=== PATIENT | male | born 1940 | race Caucasian/White ===

== ENCOUNTER 2016-10-09 15:15 | Inpatient (IN) | payer MEDICARE ==
[2016-10-09] MEDS ORDERED: HYDROCODONE/ACETAMINOPHEN 5-325 MG TABLET PO ONE (15:43)
[2016-10-09] MEDS ORDERED: ONDANSETRON 4 MG TAB.RAPDIS ONE (16:23)
--- NOTE | 2016-10-09 16:45 | ER Document Report ---
ED General - General Chief Complaint: Fall Injury Stated Complaint: FALL/ HIP PAIN Mode of Arrival: Medic Information source: Patient, Relative Notes: 76-year-old male who normally and delayed states that he had a mechanical fall striking his head on a cabinet and having hip pain. Patient notes that he was unable to and relate afterwards, didn't strike his head and is on a blood thinner Patient denies any LOC any neurological deficits hip was placed in a blanket splint TRAVEL OUTSIDE OF THE [place] IN LAST 30 DAYS: No - HPI Onset: Just prior to arrival Onset/Duration: Sudden Quality of pain: Achy Severity: Mild Pain Level: 1 Associated symptoms: Body/muscle aches, Other Exacerbated by: Movement Relieved by: Denies Similar symptoms previously: No Recently seen / treated by doctor: No - Related Data Allergies/Adverse Reactions: No Known Allergies Allergy (Unverified 12/15/14 09:27) Past Medical History - General Information source: Patient, Emergency Med Personnel - Social History Smoking Status: Never Smoker Cigarette use (# per day): No Chew tobacco use (# tins/day): No Smoking Education Provided: No Family History: None Patient has suicidal ideation: No Patient has homicidal ideation: No - Past Medical History Cardiac Medical History: Reports: Hx Atrial Fibrillation, Hx Congestive Heart Failure, Hx Hypertension Endocrine Medical History: Reports: Hx Diabetes Mellitus Type 2 Skin Medical History: Denies Hx MRSA Psychiatric Medical History: Denies: Hx Depression Past Surgical History: Reports: Hx Cardiac Surgery - pacer/defib, Hx Orthopedic Surgery - R knee replacement - Immunizations Hx Diphtheria, Pertussis, Tetanus Vaccination: Yes Hx Pneumococcal Vaccination: 06/23/09 Review of Systems - Review of Systems Notes: REVIEW OF SYSTEMS: CONSTITUTIONAL : Denies fever, chills, or sweats. Denies recent illness. EENT: Denies eye, ear, throat, or mouth pain or symptoms. Denies nasal or sinus congestion or discharge. Denies throat, tongue, or mouth swelling or difficulty swallowing. CARDIOVASCULAR: Denies chest pain. Denies palpitations or racing or irregular heart beat. Denies ankle edema. RESPIRATORY: Denies cough, cold, or chest congestion. Denies shortness of breath, difficulty breathing, or wheezing. GASTROINTESTINAL: Denies abdominal pain or distention. Denies nausea, vomiting , or diarrhea. Denies blood in vomitus, stools, or per rectum. Denies black, tarry stools. Denies constipation. GENITOURINARY: Denies difficulty urinating, painful urination, burning, frequency, blood in urine, or discharge. MUSCULOSKELETAL: Admits to right hip pain SKIN: Denies rash, lesions or sores. HEMATOLOGIC : Denies easy bruising or bleeding. LYMPHATIC: Denies swollen, enlarged glands. NEUROLOGICAL: Denies confusion or altered mental status. Denies passing out or loss of consciousness. Denies dizziness or lightheadedness. Denies headache. Denies weakness or paralysis or loss of use of either side. Denies problems with gait or speech. Denies sensory loss, numbness, or tingling. Denies seizures. PSYCHIATRIC: Denies anxiety or stress. Denies depression, suicidal ideation, or homicidal ideation. ALL OTHER SYSTEMS REVIEWED AND NEGATIVE. Dictation was performed using [employer] voice recognition software PHYSICAL EXAMINATION: GENERAL: Well-appearing, well-nourished and in no acute distress. HEAD: Atraumatic, normocephalic. EYES: Pupils equal round and reactive to light, extraocular movements intact, sclera anicteric, conjunctiva are normal. ENT: Nares patent, oropharynx clear without exudates. Moist mucous membranes. NECK: Normal range of motion, supple without lymphadenopathy LUNGS: Breath sounds clear to auscultation bilaterally and equal. No wheezes rales or rhonchi. HEART: Regular rate and rhythm without murmurs ABDOMEN: Soft, nontender, nondistended abdomen. No guarding, no rebound. No masses appreciated. Musculoskeletal: Limited range of motion of the right hip with tenderness, no obvious deformity NEUROLOGICAL: Cranial nerves grossly intact. Normal speech, normal gait. Normal sensory, motor exams PSYCH: Normal mood, normal affect. SKIN: Warm, Dry, normal turgor, no rashes or lesions noted. Physical Exam - Vital signs Vitals: Temp Pulse Resp BP Pulse Ox 98.3 F 100 16 128/66 H 100 10/09/16 15:30 10/09/16 15:30 10/09/16 15:30 10/09/16 15:30 10/09/16 15:30 Course - Re-evaluation Re-evalutation: 10/09/16 17:11 X-ray and CT of the head was negative however given the patient continues to have pain a CT has been ordered 10/09/16 18:11 ct noted femoral fx. joao sunshine paged at family request for dr barrera 10/09/16 18:41 Dr Barrera is not in town for 2 weeks , family wishes ot stay here 10/09/16 20:10 - Vital Signs Vital signs: Temp Pulse Resp BP Pulse Ox 98.3 F 100 16 128/66 H 100 10/09/16 15:30 10/09/16 15:30 10/09/16 15:30 10/09/16 15:30 10/09/16 15:30 - Laboratory Result Diagrams: 10/09/16 18:30 10/09/16 18:30 Laboratory results interpreted by me: 10/09/16 10/09/16 10/09/16 18:30 18:30 18:30 RBC 3.63 L Hgb 10.8 L Hct 31.8 L RDW 16.9 H Seg Neutrophils % 85.0 H Lymphocytes % 6.7 L PT 26.8 H BUN 23 H Creatinine 1.33 H Est GFR (Non-Af Amer) 52 L Glucose 132 H - Diagnostic Test Radiology reviewed: Image reviewed, Reports reviewed Discharge - Discharge Clinical Impression: Hip fracture Qualifiers: Encounter type: initial encounter Fracture type: closed Laterality: right Qualified Code(s): S72.001A - Fracture of unspecified part of neck of right femur, initial encounter for closed fracture Fall Qualifiers: Encounter type: initial encounter Qualified Code(s): W19.XXXA - Unspecified fall, initial encounter Condition: Stable Disposition: ADMITTED INPATIENT Admitting Provider: Hospitalist Unit Admitted: Telemetry
[2016-10-09 18:41] LABS: ABSOLUTE LYMPHOCYTES (AUTO) 0.5 10^3/uL (0.5-4.7); ABSOLUTE MONOCYTES (AUTO) 0.6 10^3/uL (0.1-1.4); ABSOLUTE NEUT (AUTO) 6.7 10^3/uL (1.7-8.2); BASOPHILS % (AUTO) 0.6 % (0-2); EOSINOPHILS % (AUTO) 0.5 % (0-6); HEMATOCRIT 31.8 % (37.9-51.0); HEMOGLOBIN 10.8 g/dL (13.5-17.0); HGB HCT DIFFERENCE 0.6; LYMPHOCYTES % (AUTO) 6.7 % (13-45); MEAN CORPUSCULAR HEMOGLOBIN 29.8 pg (27.0-33.4); MEAN CORPUSCULAR VOLUME 88 fl (80-97); MONOCYTES % (AUTO) 7.2 % (3-13); RED BLOOD COUNT 3.63 10^6/uL (4.35-5.55); RED CELL DISTRIBUTION WIDTH 16.9 % (11.5-14.0); WHITE BLOOD COUNT 7.9 10^3/uL (4.0-10.5)
[2016-10-09 18:47] LABS: PROTHROMBIN TIME 26.8 SEC (11.4-15.4)
[2016-10-09 19:04] LABS: ALANINE AMINOTRANSFERASE 24 U/L (21-72); ALBUMIN 3.9 g/dL (3.5-5.0); ALKALINE PHOSPHATASE 104 U/L (38-126); ANION GAP 12 (5-19); ASPARTATE AMINO TRANSFERASE 36 U/L (17-59); BILIRUBIN,TOTAL 0.5 mg/dL (0.2-1.3); BLOOD UREA NITROGEN 23 mg/dL (7-20); CALCIUM 9.6 mg/dL (8.4-10.2); CARBON DIOXIDE 26 mmol/L (22-30); CHLORIDE 103 mmol/L (98-107); CREATININE RESULT 1.33 mg/dL (0.52-1.25); GLUCOSE 132 mg/dL (75-110); POTASSIUM 4.5 mmol/L (3.6-5.0); SODIUM 140.7 mmol/L (137-145); TOTAL PROTEIN 6.7 g/dL (6.3-8.2)
[2016-10-09] MEDS ORDERED: TRAMADOL HCL 50 MG TABLET PO PRN (20:01)
[2016-10-09] MEDS ORDERED: GLUCAGON,HUMAN RECOMB 1 MG INJ IM PRN (20:03)
[2016-10-09] MEDS ORDERED: DEXTROSE 50%-WATER 25 GM/50 ML DISP.SYRIN IV PRN ×2 (20:03)
[2016-10-09] MEDS ORDERED: DEXTROSE 40% GEL 15 GM TUBE PO PRN ×2 (20:03)
[2016-10-09] MEDS ORDERED: MAGNESIUM HYDROXIDE SUSP 30 ML UDCUP PO PRN (20:04)
[2016-10-09] MEDS ORDERED: ONDANSETRON HCL INJ/PF 4 MG/2 ML SDV IV PRN (20:04)
[2016-10-09] MEDS ORDERED: IPRATROPIUM/ALBUTEROL 0.5-2.5 MG/3 ML AMPUL NEB PRN (20:04)
[2016-10-09] MEDS ORDERED: (PENDING PHARMACY ID) (Lovastatin [Altoprev] 20 MG) PO SCH (22:00)
[2016-10-09] MEDS: HEPARIN SOD (PORCINE) 5,000 UNIT/ML 1 ML SYRINGE SUBCUT SCH (23:46)
[2016-10-09] MEDS: CARVEDILOL 12.5 MG TABLET PO SCH (23:47)
[2016-10-09] MEDS: CLONIDINE HCL 0.1 MG TABLET PO SCH (23:47)
[2016-10-09] MEDS: ATORVASTATIN CALCIUM 10 MG TABLET PO SCH (23:48)
[2016-10-10 01:24] LABS: FOLATE > 20.00 ng/mL (>2.76)
[2016-10-10 04:45] LABS: ABSOLUTE EOSINOPHILS # (AUTO) 0.1 10^3/uL (0.0-0.6); ABSOLUTE MONOCYTES (AUTO) 0.7 10^3/uL (0.1-1.4); ABSOLUTE NEUT (AUTO) 4.5 10^3/uL (1.7-8.2); BASOPHILS % (AUTO) 0.5 % (0-2); HEMOGLOBIN 9.6 g/dL (13.5-17.0); HGB HCT DIFFERENCE 0.8; LYMPHOCYTES % (AUTO) 15.5 % (13-45); MEAN CORPUSCULAR HEMOGLOBIN 29.9 pg (27.0-33.4); MEAN CORPUSCULAR HGB CONC 34.2 g/dL (32.0-36.0); MEAN CORPUSCULAR VOLUME 88 fl (80-97); MONOCYTES % (AUTO) 11.2 % (3-13); RED BLOOD COUNT 3.19 10^6/uL (4.35-5.55); RED CELL DISTRIBUTION WIDTH 16.8 % (11.5-14.0); SEGMENTED NEUTROPHILS % (AUTO) 71.8 % (42-78); WHITE BLOOD COUNT 6.2 10^3/uL (4.0-10.5)
[2016-10-10 05:21] LABS: ANION GAP 9 (5-19); BLOOD UREA NITROGEN 23 mg/dL (7-20); CALCIUM 9.2 mg/dL (8.4-10.2); CARBON DIOXIDE 26 mmol/L (22-30); CHLORIDE 105 mmol/L (98-107); CREATININE RESULT 1.24 mg/dL (0.52-1.25); GLUCOSE 93 mg/dL (75-110); POTASSIUM 4.4 mmol/L (3.6-5.0); SODIUM 139.9 mmol/L (137-145)
[2016-10-10] MEDS: HEPARIN SOD (PORCINE) 5,000 UNIT/ML 1 ML SYRINGE SUBCUT SCH ×2 (06:01→13:45)
[2016-10-10] MEDS: CLONIDINE HCL 0.1 MG TABLET PO SCH ×2 (06:01→13:53)
[2016-10-10] MEDS ORDERED: NORMAL SALINE 250 ML IV PRN ×2 (06:11)
--- NOTE | 2016-10-10 06:15 | PDOC H&P ---
History of Present Illness Admission Date/PCP: 10/09/16 20:03 Patient complains of: Right hip pain History of Present Illness: KEVAN GOMES SR is a 76 year old male with a past medical history of congestive heart failure with permanent pacemaker, obstructive sleep apnea, diabetes, chronic anticoagulation for pulmonary emboli 2 years ago. He denies usual state of health until having a momentary loss of balance falling backwards resulting in pain with weightbearing on his right hip and a glancing blow to a cabinet on his scalp without injury. He denied prior dizziness palpitations chest pain shortness of breath, no subsequent limb shaking loss of consciousness or vomiting. He denies recent change in medications usually ambulates with a walker having regardless sustaining 2 falls in the last 30 days. In the emergency room he has a workup notable for a nondisplaced right- sided hip fracture by CT, anemia and INR of 2.5. He is referred to the hospitalist for admission. Past Medical History Cardiac Medical History: Reports: Atrial Fibrillation, Congestive Heart Failure , Hypertension Endocrine Medical History: Reports: Diabetes Mellitus Type 2 Psychiatric Medical History: Denies: Depression, Tobacco Dependency Past Surgical History Past Surgical History: Reports: Internal Defibrillator, Knee Replacement - Right side, Orthopedic Surgery - R knee replacement, Pacemaker Social History Information Source: Patient Lives with: Alone Smoking Status: Former Smoker Cigarettes Packs Per Day: 1 Number of Years Smokin Last Time Smoked: 2011 Frequency of Alcohol Use: None Hx Recreational Drug Use: No Drugs: None Hx Prescription Drug Abuse: No - Advance Directive Resuscitation Status: Full Code Family History Family History: Hypertension Parental Family History Reviewed: Yes Children Family History Reviewed: Yes Sibling(s) Family History Reviewed.: Yes Medication/Allergy Home Medications: Carvedilol 25 mg PO BID 10/09/16 Clonidine HCl 0.1 mg PO TID 10/09/16 Digoxin [Digox] 125 mcg PO DAILY 10/09/16 Ergocalciferol (Vitamin D2) [Vitamin D2] 400 unit PO DAILY 10/09/16 Exenatide Microspheres [Bydureon Pen] 2 mg SQ ASDIR PRN 10/09/16 Furosemide [Lasix 40 mg Tablet] 40 mg PO DAILY 10/09/16 Krill Oil 500 mg PO BID 10/09/16 Levothyroxine Sodium [Synthroid] 25 mcg PO DAILY 10/09/16 Lovastatin [Altoprev] 20 mg PO QHS 10/09/16 Metformin HCl [Glucophage] 1,000 mg PO Q12 10/09/16 Omeprazole 20 mg PO DAILY 10/09/16 Potassium Chloride 20 meq PO Q12 10/09/16 Sacubitril/Valsartan [Entresto 49 mg/51 mg Tablet] 1 tab PO BID 10/09/16 Sitagliptin Phosphate [Januvia 50 mg Tablet] 50 mg PO DAILY 10/09/16 Tramadol HCl 50 mg PO TID 10/09/16 Warfarin Sodium 5 mg PO QHS 10/09/16 Allergies/Adverse Reactions: No Known Allergies Allergy (Unverified 12/15/14 09:27) Review of Systems Constitutional: ABSENT: chills, fever(s), headache(s), weight gain, weight loss Eyes: ABSENT: visual disturbances Ears: ABSENT: hearing changes Cardiovascular: ABSENT: chest pain, dyspnea on exertion, edema, orthropnea, palpitations Respiratory: ABSENT: cough, hemoptysis Gastrointestinal: ABSENT: abdominal pain, constipation, diarrhea, hematemesis, hematochezia, nausea, vomiting Genitourinary: ABSENT: dysuria, hematuria Musculoskeletal: ABSENT: joint swelling Integumentary: ABSENT: rash, wounds Neurological: ABSENT: abnormal gait, abnormal speech, confusion, dizziness, focal weakness, syncope Psychiatric: ABSENT: anxiety, depression, homidical ideation, suicidal ideation Endocrine: ABSENT: cold intolerance, heat intolerance, polydipsia, polyuria Hematologic/Lymphatic: ABSENT: easy bleeding, easy bruising Physical Exam Vital Signs: Temp Pulse Resp BP Pulse Ox 97.9 F 75 16 122/55 L 100 10/10/16 03:33 10/10/16 03:33 10/10/16 03:33 10/10/16 03:33 10/10/16 03:33 Intake & Output 10/08/16 10/09/16 10/10/16 11:59 11:59 11:59 Intake Total 0 Balance 0 Weight 65.9 kg General appearance: PRESENT: mild distress, well-developed, well-nourished Head exam: PRESENT: atraumatic, normocephalic Eye exam: PRESENT: conjunctiva pink, EOMI, PERRLA. ABSENT: scleral icterus Ear exam: PRESENT: normal external ear exam Mouth exam: PRESENT: moist, tongue midline Neck exam: ABSENT: carotid bruit, JVD, lymphadenopathy, thyromegaly Respiratory exam: PRESENT: clear to auscultation main. ABSENT: rales, rhonchi, wheezes Cardiovascular exam: PRESENT: RRR. ABSENT: clicks, diastolic murmur, gallop, irregular rhythm, rubs, systolic murmur Pulses: PRESENT: normal dorsalis pedis pul Vascular exam: PRESENT: normal capillary refill GI/Abdominal exam: PRESENT: normal bowel sounds, soft. ABSENT: ascites, distended, guarding, mass, organolmegaly, rebound, tenderness Rectal exam: PRESENT: deferred Extremities exam: PRESENT: full ROM. ABSENT: calf tenderness, clubbing, pedal edema Musculoskeletal exam: PRESENT: full ROM - Minimal pain with rotation of the right leg. Though intolerant of weightbearing Neurological exam: PRESENT: alert, awake, oriented to person, oriented to place , oriented to time, oriented to situation, CN II-XII grossly intact. ABSENT: motor sensory deficit Psychiatric exam: PRESENT: appropriate affect, normal mood. ABSENT: homicidal ideation, suicidal ideation Skin exam: PRESENT: dry, intact, warm. ABSENT: cyanosis, rash Results Laboratory Results: 10/10/16 04:06 10/10/16 04:06 10/09/16 10/10/16 10/10/16 23:45 04:06 04:06 WBC 6.2 RBC 3.19 L Hgb 9.6 L Hct 28.0 L MCV 88 MCH 29.9 MCHC 34.2 RDW 16.8 H Plt Count 146 L Seg Neutrophils % 71.8 Lymphocytes % 15.5 Monocytes % 11.2 Eosinophils % 1.0 Basophils % 0.5 Absolute Neutrophils 4.5 Absolute Lymphocytes 1.0 Absolute Monocytes 0.7 Absolute Eosinophils 0.1 Absolute Basophils 0.0 Sodium 139.9 Potassium 4.4 Chloride 105 Carbon Dioxide 26 Anion Gap 9 BUN 23 H Creatinine 1.24 Est GFR ( Amer) > 60 Est GFR (Non-Af Amer) 56 L Glucose 93 Calcium 9.2 Iron 25 L TIBC 238 L % Saturation 11 Ferritin 190.00 Vitamin B12 243.0 Folate > 20.00 Impressions: Chest X-Ray 10/09/16 00:00 IMPRESSION: No acute cardiopulmonary disease.Chronic incompletely healed proximal left humeral fracture. Hip/Pelvis X-Ray 12/26/16 00:00 IMPRESSION: Osteopenia. No acute findings. Head CT 10/09/16 15:52 IMPRESSION: CHRONIC CHANGES OF ATROPHY AND MICROVASCULAR ISCHEMIA. NO ACUTE PROCESS. Pelvis CT 10/09/16 16:50 IMPRESSION: Nondisplaced comminuted intertrochanteric right proximal femoral fracture. Assessment & Plan - Diagnosis (1) Hip fracture Qualifiers: Encounter type: initial encounter Fracture type: closed Laterality : right Qualified Code(s): S72.001A - Fracture of unspecified part of neck of right femur, initial encounter for closed fracture Is this a current diagnosis for this admission?: YesPlan: Symptomatically management orthopedic surgery and physical therapy consultation. Preop evaluation with EKG reveals paced rhythm and chest x-ray reveals no acute process and well compensated heart failure. Patient denies history of complicated surgery or anesthesia. The patient is at low/ moderate risk for orthopedic procedure from a cardiopulmonary standpoint. However his anemia is a significant modifiable risk factor and will order 2 units of pack red blood cells anemia workup. (2) Anticoagulated Is this a current diagnosis for this admission?: YesPlan: Patient is chronically anticoagulated for history of pulmonary embolism approximately 2 years ago, will hold Coumadin with a.m. INR considering heparin bridge (3) Anemia Is this a current diagnosis for this admission?: YesPlan: Unclear cause though 2 units of pack red blood cells and workup ordered. (4) Fall Qualifiers: Encounter type: initial encounter Qualified Code(s): W19.XXXA - Unspecified fall, initial encounter Plan: Physical therapy evaluation (5) Diabetes Is this a current diagnosis for this admission?: YesPlan: While nothing by mouth continue sliding scale every 6 hours (6) SILVA on CPAP Is this a current diagnosis for this admission?: YesPlan: Continue Cpap at night - Time Time Spent: 50 to 70 Minutes
[2016-10-10 07:07] LABS: PROTHROMBIN TIME 24.9 SEC (11.4-15.4)
[2016-10-10] MEDS ORDERED: (PENDING PHARMACY ID) (Ergocalciferol (Vitamin D2) [Vitamin D] 400 UNIT) PO SCH (08:00)
--- NOTE | 2016-10-10 08:30 | EKG REPORT ---
SEVERITY:- ABNORMAL ECG - VENTRICULAR-PACED RHYTHM : Confirmed by: Cooper Jovel MD 10-Oct-2016 08:29:58
--- NOTE | 2016-10-10 09:39 | PDOC PROGRESS REPORT ---
Subjective Progress Note for:: 10/10/16 Subjective:: Patient voiced no complaints at this time. Family at bedside. No history of pulmonary embolism. Chronic anticoagulation for atrial fibrillation. Patient apparently just woke up prior to the fall. There is no dizziness, vertigo symptoms, chest pain or shortness of breath nor any focal weakness. No chills or fever associated as well. No dysuria urgency or frequency nor diarrhea. Physical Exam Vital Signs: Temp Pulse Resp BP Pulse Ox 97.9 F 74 16 122/55 L 96 10/10/16 03:33 10/10/16 09:21 10/10/16 09:21 10/10/16 03:33 10/10/16 09:21 Intake & Output 10/09/16 10/10/16 10/11/16 06:59 06:59 06:59 Intake Total 120 Output Total 500 Balance -380 Weight 65.2 kg General appearance: PRESENT: no acute distress, cooperative Head exam: PRESENT: normocephalic Eye exam: PRESENT: conjunctiva pale, EOMI Mouth exam: PRESENT: moist, neck supple Neck exam: ABSENT: JVD Respiratory exam: PRESENT: decreased breath sounds, unlabored. ABSENT: rhonchi , wheezes Cardiovascular exam: PRESENT: irregular rhythm. ABSENT: gallop GI/Abdominal exam: PRESENT: normal bowel sounds, soft. ABSENT: distended, tenderness Extremities exam: PRESENT: other - Trace edema Neurological exam: PRESENT: alert, awake Psychiatric exam: PRESENT: normal mood Skin exam: PRESENT: dry, warm. ABSENT: cyanosis Results Laboratory Results: 10/10/16 04:06 10/10/16 04:06 10/09/16 10/10/16 10/10/16 23:45 04:06 04:06 WBC 6.2 RBC 3.19 L Hgb 9.6 L Hct 28.0 L MCV 88 MCH 29.9 MCHC 34.2 RDW 16.8 H Plt Count 146 L Seg Neutrophils % 71.8 Lymphocytes % 15.5 Monocytes % 11.2 Eosinophils % 1.0 Basophils % 0.5 Absolute Neutrophils 4.5 Absolute Lymphocytes 1.0 Absolute Monocytes 0.7 Absolute Eosinophils 0.1 Absolute Basophils 0.0 Sodium 139.9 Potassium 4.4 Chloride 105 Carbon Dioxide 26 Anion Gap 9 BUN 23 H Creatinine 1.24 Est GFR ( Amer) > 60 Est GFR (Non-Af Amer) 56 L Glucose 93 Calcium 9.2 Iron 25 L TIBC 238 L % Saturation 11 Ferritin 190.00 Vitamin B12 243.0 Folate > 20.00 Blood Type Antibody Screen 10/10/16 06:35 WBC RBC Hgb Hct MCV MCH MCHC RDW Plt Count Seg Neutrophils % Lymphocytes % Monocytes % Eosinophils % Basophils % Absolute Neutrophils Absolute Lymphocytes Absolute Monocytes Absolute Eosinophils Absolute Basophils Sodium Potassium Chloride Carbon Dioxide Anion Gap BUN Creatinine Est GFR ( Amer) Est GFR (Non-Af Amer) Glucose Calcium Iron TIBC % Saturation Ferritin Vitamin B12 Folate Blood Type A NEGATIVE Antibody Screen NEGATIVE Impressions: Chest X-Ray 10/09/16 00:00 IMPRESSION: No acute cardiopulmonary disease.Chronic incompletely healed proximal left humeral fracture. Hip/Pelvis X-Ray 10/09/16 00:00 IMPRESSION: Osteopenia. No acute findings. Head CT 10/09/16 15:52 IMPRESSION: CHRONIC CHANGES OF ATROPHY AND MICROVASCULAR ISCHEMIA. NO ACUTE PROCESS. Pelvis CT 10/09/16 16:50 IMPRESSION: Nondisplaced comminuted intertrochanteric right proximal femoral fracture. Assessment & Plan - Diagnosis (1) Hip fracture Qualifiers: Encounter type: initial encounter Fracture type: closed Laterality : right Qualified Code(s): S72.001A - Fracture of unspecified part of neck of right femur, initial encounter for closed fracture Is this a current diagnosis for this admission?: Yes (2) Anemia Qualifiers: Anemia type: unspecified type Qualified Code(s): D64.9 - Anemia, unspecified Is this a current diagnosis for this admission?: Yes (3) Anticoagulated Is this a current diagnosis for this admission?: Yes (4) HTN (hypertension), malignant Is this a current diagnosis for this admission?: Yes (5) Diabetes Qualifiers: Diabetes mellitus type: type 2 Diabetes mellitus complication status: with unspecified complications Diabetes mellitus terminal worker insulin use: without fci use Qualified Code(s): E11.8 - Type 2 diabetes mellitus with unspecified complications Is this a current diagnosis for this admission?: Yes (6) SILVA on CPAP Is this a current diagnosis for this admission?: Yes (7) Atrial fibrillation Qualifiers: Atrial fibrillation type: chronic Qualified Code(s): I48.2 - Chronic atrial fibrillation Is this a current diagnosis for this admission?: Yes (8) Chronic congestive heart failure Qualifiers: Congestive heart failure type: unspecified congestive heart failure type Qualified Code(s): I50.9 - Heart failure, unspecified Is this a current diagnosis for this admission?: Yes - Time Time Spent with patient: 25-34 minutes - Plan Summary Plan Summary: We will continue to hold warfarin. Recheck PT/INR in the morning. Continue to monitor hemoglobin and hematocrit. Transfuse if it falls below 8. Continue supportive care and gentle IV fluid. Awaiting orthopedic evaluation. Continue pain management as discussed time.
[2016-10-10] MEDS: LEVOTHYROXINE SODIUM 0.025 MG TABLET PO SCH (13:41)
[2016-10-10] MEDS: IRON POLYSACCHARIDES COMPLEX 150 MG CAPSULE PO SCH (13:42)
[2016-10-10] MEDS: DIGOXIN 0.125 MG TABLET PO SCH (13:43)
[2016-10-10] MEDS: CHOLECALCIFEROL (D3) 400 UNIT TABLET PO SCH (13:53)
[2016-10-10] MEDS: DOCUSATE SODIUM 100 MG CAPSULE PO SCH ×2 (13:53→17:36)
[2016-10-10] MEDS: CARVEDILOL 12.5 MG TABLET PO SCH (13:53)
[2016-10-10] MEDS: RAMIPRIL 10 MG CAPSULE PO SCH (13:53)
--- NOTE | 2016-10-10 16:02 | PDOC CONSULTATION ---
History of Present Illness Admission Date/PCP: 10/09/16 20:03 History of Present Illness: 76-year-old gentleman status post fall injuring his right hip. He is unable to put weight on the right lower extremity. He was seen in the ER where they have x-rays are negative by CAT scan that showed a nondisplaced intertrochanteric hip fracture. Patient denies any previous injuries and denies any numbness or tingling. Denies any previous surgery. Patient was admitted on the medicine for his multiple medical comorbidities. Patient is on Coumadin for previous DVTs. Past Medical History Cardiac Medical History: Reports: Atrial Fibrillation, Congestive Heart Failure , Hypertension Endocrine Medical History: Reports: Diabetes Mellitus Type 2 Psychiatric Medical History: Denies: Depression, Tobacco Dependency Past Surgical History Past Surgical History: Reports: Internal Defibrillator, Knee Replacement - Right side, Orthopedic Surgery - R knee replacement, Pacemaker Social History Lives with: Alone Smoking Status: Former Smoker Cigarettes Packs Per Day: 1 Number of Years Smokin Last Time Smoked: 2011 Frequency of Alcohol Use: None Hx Recreational Drug Use: No Drugs: None Hx Prescription Drug Abuse: No - Advance Directive Resuscitation Status: Full Code Family History Family History: Hypertension Parental Family History Reviewed: Yes Children Family History Reviewed: Yes Sibling(s) Family History Reviewed.: Yes Medication/Allergy Home Medications: Carvedilol 25 mg PO BID 10/09/16 Clonidine HCl 0.1 mg PO TID 10/09/16 Digoxin [Digox] 125 mcg PO DAILY 10/09/16 Ergocalciferol (Vitamin D2) [Vitamin D2] 400 unit PO DAILY 10/09/16 Exenatide Microspheres [Bydureon Pen] 2 mg SQ ASDIR PRN 10/09/16 Furosemide [Lasix 40 mg Tablet] 40 mg PO DAILY 10/09/16 Krill Oil 500 mg PO BID 10/09/16 Levothyroxine Sodium [Synthroid] 25 mcg PO DAILY 10/09/16 Lovastatin [Altoprev] 20 mg PO QHS 10/09/16 Metformin HCl [Glucophage] 1,000 mg PO Q12 10/09/16 Omeprazole 20 mg PO DAILY 10/09/16 Potassium Chloride 20 meq PO Q12 10/09/16 Sacubitril/Valsartan [Entresto 49 mg/51 mg Tablet] 1 tab PO BID 10/09/16 Sitagliptin Phosphate [Januvia 50 mg Tablet] 50 mg PO DAILY 10/09/16 Tramadol HCl 50 mg PO TID 10/09/16 Warfarin Sodium 5 mg PO QHS 10/09/16 Allergies/Adverse Reactions: No Known Allergies Allergy (Unverified 12/15/14 09:27) Physical Exam Vital Signs: Temp Pulse Resp BP Pulse Ox 36.3 C 75 16 97/59 L 100 10/10/16 11:00 10/10/16 11:00 10/10/16 11:00 10/10/16 11:00 10/10/16 11:00 Intake & Output 10/09/16 10/10/16 10/11/16 06:59 06:59 06:59 Intake Total 120 Output Total 500 Balance -380 Weight 65.2 kg General appearance: PRESENT: no acute distress Eye exam: PRESENT: EOMI. ABSENT: nystagmus, scleral icterus Respiratory exam: PRESENT: symmetrical, unlabored. ABSENT: accessory muscle use Vascular exam: PRESENT: normal capillary refill Musculoskeletal exam: PRESENT: normal inspection, tenderness. ABSENT: deformity Skin exam: PRESENT: intact Adult Front & Back Image: 1 - Tender to palpation over the right groin. Pain with attempted range of motion. Pain with logroll attempt. Good sensation to light this distally of the good capillary refill. Faint dorsalis pedis pulse. Able to flex and extend the toes and move his ankle without pain. No obvious shortening or deformity of the right lower extremity. Results Laboratory Results: 10/10/16 04:06 10/10/16 04:06 10/09/16 10/10/16 10/10/16 23:45 04:06 04:06 WBC 6.2 RBC 3.19 L Hgb 9.6 L Hct 28.0 L MCV 88 MCH 29.9 MCHC 34.2 RDW 16.8 H Plt Count 146 L Seg Neutrophils % 71.8 Lymphocytes % 15.5 Monocytes % 11.2 Eosinophils % 1.0 Basophils % 0.5 Absolute Neutrophils 4.5 Absolute Lymphocytes 1.0 Absolute Monocytes 0.7 Absolute Eosinophils 0.1 Absolute Basophils 0.0 Sodium 139.9 Potassium 4.4 Chloride 105 Carbon Dioxide 26 Anion Gap 9 BUN 23 H Creatinine 1.24 Est GFR ( Amer) > 60 Est GFR (Non-Af Amer) 56 L Glucose 93 Calcium 9.2 Iron 25 L TIBC 238 L % Saturation 11 Ferritin 190.00 Vitamin B12 243.0 Folate > 20.00 Blood Type Antibody Screen 10/10/16 06:35 WBC RBC Hgb Hct MCV MCH MCHC RDW Plt Count Seg Neutrophils % Lymphocytes % Monocytes % Eosinophils % Basophils % Absolute Neutrophils Absolute Lymphocytes Absolute Monocytes Absolute Eosinophils Absolute Basophils Sodium Potassium Chloride Carbon Dioxide Anion Gap BUN Creatinine Est GFR ( Amer) Est GFR (Non-Af Amer) Glucose Calcium Iron TIBC % Saturation Ferritin Vitamin B12 Folate Blood Type A NEGATIVE Antibody Screen NEGATIVE Impressions: Chest X-Ray 10/09/16 00:00 IMPRESSION: No acute cardiopulmonary disease.Chronic incompletely healed proximal left humeral fracture. Hip/Pelvis X-Ray 10/09/16 00:00 IMPRESSION: Osteopenia. No acute findings. Head CT 10/09/16 15:52 IMPRESSION: CHRONIC CHANGES OF ATROPHY AND MICROVASCULAR ISCHEMIA. NO ACUTE PROCESS. Pelvis CT 10/09/16 16:50 IMPRESSION: Nondisplaced comminuted intertrochanteric right proximal femoral fracture. Assessment & Plan - Diagnosis (1) Nondisplaced intertrochanteric fracture of right femur Qualifiers: Encounter type: initial encounter Fracture type: closed Qualified Code(s): S72.144A - Nondisplaced intertrochanteric fracture of right femur, initial encounter for closed fracture Is this a current diagnosis for this admission?: YesPlan: Patient instructed in told the risks and benefits of proceeding with nonoperative measures versus cephalo-medullary nailing of the right hip fracture. Patient and the family agreed to proceed with surgery. In the meantime he will be bedrest. His Coumadin has been halted and his last INR is a been 2.5 and 2.1 last couple days. Most likely he'll take 2 more days to let her gradually reverse. is my surgical today and I anticipate him being under 1.5 and able to proceed with surgery. I discussed this with the family and patient which they understand. The meantime pain control and care from primary team. Patient should be on Lovenox or heparin while off of the Coumadin.
[2016-10-11] MEDS: HEPARIN SOD (PORCINE) 5,000 UNIT/ML 1 ML SYRINGE SUBCUT SCH ×4 (00:08→22:24)
[2016-10-11] MEDS: ATORVASTATIN CALCIUM 10 MG TABLET PO SCH ×2 (00:10→22:22)
[2016-10-11] MEDS: CARVEDILOL 12.5 MG TABLET PO SCH ×3 (00:16→22:23)
[2016-10-11] MEDS: CLONIDINE HCL 0.1 MG TABLET PO SCH ×4 (00:17→22:24)
[2016-10-11 05:35] LABS: HEMATOCRIT 28.2 % (37.9-51.0); HEMOGLOBIN 9.5 g/dL (13.5-17.0); HGB HCT DIFFERENCE 0.3; MEAN CORPUSCULAR HEMOGLOBIN 29.5 pg (27.0-33.4); MEAN CORPUSCULAR HGB CONC 33.8 g/dL (32.0-36.0); MEAN CORPUSCULAR VOLUME 87 fl (80-97); RED BLOOD COUNT 3.23 10^6/uL (4.35-5.55); WHITE BLOOD COUNT 4.6 10^3/uL (4.0-10.5)
[2016-10-11 05:37] LABS: PROTHROMBIN TIME 19.8 SEC (11.4-15.4)
[2016-10-11] MEDS: RAMIPRIL 10 MG CAPSULE PO SCH (08:49)
[2016-10-11] MEDS: LEVOTHYROXINE SODIUM 0.025 MG TABLET PO SCH (08:49)
[2016-10-11] MEDS: CHOLECALCIFEROL (D3) 400 UNIT TABLET PO SCH (09:01)
[2016-10-11] MEDS: DOCUSATE SODIUM 100 MG CAPSULE PO SCH ×2 (09:02→18:24)
[2016-10-11] MEDS: IRON POLYSACCHARIDES COMPLEX 150 MG CAPSULE PO SCH (09:02)
[2016-10-11] MEDS: DIGOXIN 0.125 MG TABLET PO SCH (09:02)
--- NOTE | 2016-10-11 09:20 | PDOC PROGRESS REPORT ---
Subjective Progress Note for:: 10/11/16 Subjective:: Patient voiced no complaints at this time. Pain is controlled . No history of pulmonary embolism. Chronic anticoagulation for atrial fibrillation as family reported. No chest pain or shortness of breath. No chills or fever. No dysuria urgency or frequency nor diarrhea. Physical Exam Vital Signs: Temp Pulse Resp BP Pulse Ox 98.7 F 71 16 125/72 97 10/11/16 00:14 10/11/16 09:07 10/11/16 09:07 10/11/16 05:11 10/11/16 09:07 Intake & Output 10/10/16 10/11/16 10/12/16 06:59 06:59 06:59 Intake Total 120 703 Output Total 500 650 Balance -380 53 Weight 65.2 kg 64 kg General appearance: PRESENT: no acute distress, cooperative Head exam: PRESENT: normocephalic Eye exam: PRESENT: EOMI Mouth exam: PRESENT: moist, neck supple Neck exam: ABSENT: JVD Respiratory exam: PRESENT: clear to auscultation main. ABSENT: rhonchi, wheezes Cardiovascular exam: PRESENT: irregular rhythm. ABSENT: gallop GI/Abdominal exam: PRESENT: hypoactive bowel sounds, soft. ABSENT: distended, tenderness Extremities exam: ABSENT: pedal edema Neurological exam: PRESENT: alert, awake Skin exam: PRESENT: dry, warm. ABSENT: cyanosis Results Laboratory Results: 10/11/16 05:02 10/10/16 04:06 10/11/16 05:02 WBC 4.6 RBC 3.23 L Hgb 9.5 L Hct 28.2 L MCV 87 MCH 29.5 MCHC 33.8 RDW 17.0 H Plt Count 138 L Impressions: Chest X-Ray 10/09/16 00:00 IMPRESSION: No acute cardiopulmonary disease.Chronic incompletely healed proximal left humeral fracture. Hip/Pelvis X-Ray 10/09/16 00:00 IMPRESSION: Osteopenia. No acute findings. Head CT 10/09/16 15:52 IMPRESSION: CHRONIC CHANGES OF ATROPHY AND MICROVASCULAR ISCHEMIA. NO ACUTE PROCESS. Pelvis CT 10/09/16 16:50 IMPRESSION: Nondisplaced comminuted intertrochanteric right proximal femoral fracture. Assessment & Plan - Diagnosis (1) Hip fracture Qualifiers: Encounter type: initial encounter Fracture type: closed Laterality : right Qualified Code(s): S72.001A - Fracture of unspecified part of neck of right femur, initial encounter for closed fracture Is this a current diagnosis for this admission?: Yes (2) Anemia Qualifiers: Anemia type: unspecified type Qualified Code(s): D64.9 - Anemia, unspecified Is this a current diagnosis for this admission?: Yes (3) Anticoagulated Is this a current diagnosis for this admission?: Yes (4) HTN (hypertension), malignant Is this a current diagnosis for this admission?: Yes (5) Diabetes Qualifiers: Diabetes mellitus type: type 2 Diabetes mellitus complication status: with unspecified complications Diabetes mellitus intermodal customer service insulin use: without intermodal customer service use Qualified Code(s): E11.8 - Type 2 diabetes mellitus with unspecified complications; Z79.4 - residential (current) use of insulin Is this a current diagnosis for this admission?: Yes (6) SILVA on CPAP Is this a current diagnosis for this admission?: Yes (7) Atrial fibrillation Qualifiers: Atrial fibrillation type: chronic Qualified Code(s): I48.2 - Chronic atrial fibrillation Is this a current diagnosis for this admission?: Yes (8) Chronic congestive heart failure Qualifiers: Congestive heart failure type: unspecified congestive heart failure type Qualified Code(s): I50.9 - Heart failure, unspecified Is this a current diagnosis for this admission?: Yes - Time Time Spent with patient: 15-24 minutes - Plan Summary Plan Summary: For surgery tomorrow. Recheck PT/INR. Continue heparin for DVT prophylaxis. We will consult retail planner for subacute rehabilitation placement. Continue supportive care.
--- NOTE | 2016-10-11 12:36 | PDOC PROGRESS REPORT ---
Subjective Progress Note for:: 10/11/16 Subjective:: Patient is awake and resting in bed comfortably. Pain is well-controlled. No issues overnight. Patient is okay proceeding with surgery tomorrow. Physical Exam Vital Signs: Temp Pulse Resp BP Pulse Ox 37.1 C 71 16 125/72 97 10/11/16 00:14 10/11/16 09:07 10/11/16 09:07 10/11/16 05:11 10/11/16 09:07 Intake & Output 10/10/16 10/11/16 10/12/16 06:59 06:59 06:59 Intake Total 120 703 Output Total 500 650 Balance -380 53 Weight 65.2 kg 64 kg General appearance: PRESENT: no acute distress Neurological exam: PRESENT: alert, altered, awake, oriented to person, oriented to place Psychiatric exam: PRESENT: appropriate affect, normal mood Skin exam: PRESENT: intact Adult Front & Back Image: 1 - Exam unchanged patient has pain with attempted range of motion of the right hip. Tender palpation. Distally he still neurovascular intact. Results Laboratory Results: 10/11/16 05:02 10/10/16 04:06 10/11/16 05:02 WBC 4.6 RBC 3.23 L Hgb 9.5 L Hct 28.2 L MCV 87 MCH 29.5 MCHC 33.8 RDW 17.0 H Plt Count 138 L Impressions: Chest X-Ray 10/09/16 00:00 IMPRESSION: No acute cardiopulmonary disease.Chronic incompletely healed proximal left humeral fracture. Hip/Pelvis X-Ray 10/09/16 00:00 IMPRESSION: Osteopenia. No acute findings. Head CT 10/09/16 15:52 IMPRESSION: CHRONIC CHANGES OF ATROPHY AND MICROVASCULAR ISCHEMIA. NO ACUTE PROCESS. Pelvis CT 10/09/16 16:50 IMPRESSION: Nondisplaced comminuted intertrochanteric right proximal femoral fracture. Assessment & Plan - Diagnosis (1) Nondisplaced intertrochanteric fracture of right femur Qualifiers: Encounter type: initial encounter Fracture type: closed Qualified Code(s): S72.144A - Nondisplaced intertrochanteric fracture of right femur, initial encounter for closed fracture Is this a current diagnosis for this admission?: YesPlan: Patient INR today is 1.6. I anticipate him being under 1.5 tomorrow. The meantime will continue be bedrest and pain control. I placed my order for nothing by mouth status tonight him to start IV fluids. I also wrote to hold his heparin tonight. Patient also was consented today for the procedure.
[2016-10-12 05:18] LABS: ABSOLUTE EOSINOPHILS # (AUTO) 0.1 10^3/uL (0.0-0.6); ABSOLUTE LYMPHOCYTES (AUTO) 0.9 10^3/uL (0.5-4.7); ABSOLUTE MONOCYTES (AUTO) 0.6 10^3/uL (0.1-1.4); ABSOLUTE NEUT (AUTO) 4.3 10^3/uL (1.7-8.2); BASOPHILS % (AUTO) 0.4 % (0-2); EOSINOPHILS % (AUTO) 1.9 % (0-6); HEMATOCRIT 28.8 % (37.9-51.0); HEMOGLOBIN 9.8 g/dL (13.5-17.0); HGB HCT DIFFERENCE 0.6; LYMPHOCYTES % (AUTO) 15.3 % (13-45); MEAN CORPUSCULAR HEMOGLOBIN 29.8 pg (27.0-33.4); MEAN CORPUSCULAR VOLUME 87 fl (80-97); MONOCYTES % (AUTO) 10.5 % (3-13); SEGMENTED NEUTROPHILS % (AUTO) 71.9 % (42-78)
[2016-10-12 05:32] LABS: PROTHROMBIN TIME 14.6 SEC (11.4-15.4)
[2016-10-12] MEDS: HEPARIN SOD (PORCINE) 5,000 UNIT/ML 1 ML SYRINGE SUBCUT SCH ×3 (06:16→22:13)
[2016-10-12] MEDS: CLONIDINE HCL 0.1 MG TABLET PO SCH ×3 (06:16→22:13)
[2016-10-12] MEDS ORDERED: CEFAZOLIN INJ 1 GM VIAL ONE (06:47)
[2016-10-12] MEDS ORDERED: ACETAMINOPHEN 100 ML IV ONE (07:10)
[2016-10-12] MEDS ORDERED: PROPOFOL INJ 200 MG/20 ML VIAL IV ONE (07:10)
[2016-10-12] MEDS ORDERED: FENTANYL CITRATE INJ/PF 100 MCG/2 ML AMPUL ONE (07:10)
[2016-10-12] MEDS ORDERED: MORPHINE SULFATE 10 MG/ML INJ IV PRN (08:00)
[2016-10-12] MEDS ORDERED: DIPHENHYDRAMINE HCL 50 MG/ML VIAL IV PRN (08:00)
[2016-10-12] MEDS ORDERED: MEPERIDINE HCL/PF INJ 25 MG/1 ML DISP.SYRIN IV PRN (08:00)
[2016-10-12] MEDS ORDERED: FENTANYL CITRATE INJ/PF 100 MCG/2 ML AMPUL IV PRN ×2 (08:00)
[2016-10-12] MEDS ORDERED: ROCURONIUM BROMIDE INJ 50 MG/5 ML VIAL IV ONE (10:41)
[2016-10-12] MEDS ORDERED: LIDOCAINE 2% INJ-PF (20 MG/ML) 10 ML AMPUL ONE (10:41)
[2016-10-12] MEDS ORDERED: GLYCOPYRROLATE INJ 0.4 MG/2 ML VIAL ONE (10:41)
[2016-10-12] MEDS ORDERED: ONDANSETRON HCL INJ/PF 4 MG/2 ML SDV ONE (10:41)
[2016-10-12] MEDS ORDERED: PHENYLEPHRINE HCL INJ/PF 10 MG/1 ML SDV ONE (10:41)
[2016-10-12] MEDS ORDERED: NEOSTIGMINE METHYLSULFATE 10 MG/10 ML VIAL ONE (10:41)
[2016-10-12] MEDS: LEVOTHYROXINE SODIUM 0.025 MG TABLET PO SCH (11:14)
[2016-10-12] MEDS: DIGOXIN 0.125 MG TABLET PO SCH (11:14)
[2016-10-12] MEDS: OXYCODONE HCL IR 5 MG TABLET PO PRN ×2 (11:14→22:12)
[2016-10-12] MEDS: CARVEDILOL 12.5 MG TABLET PO SCH ×2 (11:14→22:13)
[2016-10-12] MEDS: IRON POLYSACCHARIDES COMPLEX 150 MG CAPSULE PO SCH (11:15)
[2016-10-12 11:55] LABS: ANION GAP 12 (5-19); BLOOD UREA NITROGEN 26 mg/dL (7-20); CALCIUM 9.3 mg/dL (8.4-10.2); CARBON DIOXIDE 26 mmol/L (22-30); CHLORIDE 103 mmol/L (98-107); CREATININE RESULT 1.24 mg/dL (0.52-1.25); GLUCOSE 106 mg/dL (75-110); SODIUM 141.1 mmol/L (137-145)
[2016-10-12] MEDS: CHOLECALCIFEROL (D3) 400 UNIT TABLET PO SCH (13:33)
[2016-10-12] MEDS: RAMIPRIL 10 MG CAPSULE PO SCH (13:33)
[2016-10-12] MEDS: CEFAZOLIN SODIUM 1 GM in DEXTROSE 5%-WATER 50 ML IV SCH ×2 (15:11→22:14)
[2016-10-12] MEDS ORDERED: RINGERS SOLUTION,LACTATED 1,000 ML IV PRN ×2 (16:06)
--- NOTE | 2016-10-12 16:15 | PDOC PROGRESS REPORT ---
Subjective Progress Note for:: 10/12/16 Subjective:: Patient voiced no complaints at this time. Pain is controlled . Chronic anticoagulation for atrial fibrillation as family reported again. No chest pain or shortness of breath. No chills or fever. No dysuria urgency or frequency nor diarrhea. Patient tolerated surgery well. Not able to sleep well at night however. Physical Exam Vital Signs: Temp Pulse Resp BP Pulse Ox 98.8 F 75 18 120/68 97 10/12/16 14:40 10/12/16 14:40 10/12/16 14:40 10/12/16 14:40 10/12/16 14:40 Intake & Output 10/11/16 10/12/16 10/13/16 06:59 06:59 06:59 Intake Total 703 1438 700 Output Total 650 2 25 Balance 53 1436 675 Weight 64 kg 74.9 kg General appearance: PRESENT: no acute distress, cooperative Head exam: PRESENT: normocephalic Eye exam: PRESENT: EOMI Mouth exam: PRESENT: moist, neck supple Neck exam: ABSENT: JVD Respiratory exam: PRESENT: clear to auscultation main. ABSENT: rhonchi, wheezes Cardiovascular exam: PRESENT: irregular rhythm. ABSENT: gallop GI/Abdominal exam: PRESENT: hypoactive bowel sounds, soft. ABSENT: distended, tenderness Extremities exam: PRESENT: other - Trace lower extremity edema Neurological exam: PRESENT: alert, awake Skin exam: PRESENT: dry, warm. ABSENT: cyanosis Results Laboratory Results: 10/12/16 04:57 10/12/16 04:57 10/12/16 10/12/16 04:57 04:57 WBC 6.0 RBC 3.30 L Hgb 9.8 L Hct 28.8 L MCV 87 MCH 29.8 MCHC 34.0 RDW 17.0 H Plt Count 147 L Seg Neutrophils % 71.9 Lymphocytes % 15.3 Monocytes % 10.5 Eosinophils % 1.9 Basophils % 0.4 Absolute Neutrophils 4.3 Absolute Lymphocytes 0.9 Absolute Monocytes 0.6 Absolute Eosinophils 0.1 Absolute Basophils 0.0 Sodium 141.1 Potassium 4.0 Chloride 103 Carbon Dioxide 26 Anion Gap 12 BUN 26 H Creatinine 1.24 Est GFR ( Amer) > 60 Est GFR (Non-Af Amer) 56 L Glucose 106 Calcium 9.3 Impressions: Chest X-Ray 10/09/16 00:00 IMPRESSION: No acute cardiopulmonary disease.Chronic incompletely healed proximal left humeral fracture. Head CT 10/09/16 15:52 IMPRESSION: CHRONIC CHANGES OF ATROPHY AND MICROVASCULAR ISCHEMIA. NO ACUTE PROCESS. Pelvis CT 10/09/16 16:50 IMPRESSION: Nondisplaced comminuted intertrochanteric right proximal femoral fracture. Fluoroscopy 10/12/16 00:00 IMPRESSION: Please see combined report for performance of procedure and radiologic supervision and interpretation. Hip/Pelvis X-Ray 10/12/16 00:00 IMPRESSION: IMAGE(S) OBTAINED DURING PROCEDURE. Assessment & Plan - Diagnosis (1) Hip fracture Qualifiers: Encounter type: initial encounter Fracture type: closed Laterality : right Qualified Code(s): S72.001A - Fracture of unspecified part of neck of right femur, initial encounter for closed fracture Is this a current diagnosis for this admission?: Yes (2) Anemia Qualifiers: Anemia type: unspecified type Qualified Code(s): D64.9 - Anemia, unspecified Is this a current diagnosis for this admission?: Yes (3) Anticoagulated Is this a current diagnosis for this admission?: Yes (4) HTN (hypertension), malignant Is this a current diagnosis for this admission?: Yes (5) Diabetes Qualifiers: Diabetes mellitus type: type 2 Diabetes mellitus complication status: with unspecified complications Diabetes mellitus fdc insulin use: without fdc use Qualified Code(s): E11.8 - Type 2 diabetes mellitus with unspecified complications; Z79.4 - top lift compresser (current) use of insulin Is this a current diagnosis for this admission?: Yes (6) SILVA on CPAP Is this a current diagnosis for this admission?: Yes (7) Atrial fibrillation Qualifiers: Atrial fibrillation type: chronic Qualified Code(s): I48.2 - Chronic atrial fibrillation Is this a current diagnosis for this admission?: Yes (8) Chronic congestive heart failure Qualifiers: Congestive heart failure type: unspecified congestive heart failure type Qualified Code(s): I50.9 - Heart failure, unspecified Is this a current diagnosis for this admission?: Yes - Time Time Spent with patient: 25-34 minutes - Plan Summary Plan Summary: Resume warfarin. Monitor hemoglobin and hematocrit. Decrease intravenous fluids. Begin physical therapy. Consult operations planner for subacute rehabilitation. Continue other medications and supportive care. Try Ambien for insomnia.
[2016-10-12] MEDS ORDERED: WARFARIN SODIUM 5 MG TABLET PO SCH ×2 (22:00)
[2016-10-12] MEDS ORDERED: WARFARIN SODIUM 7.5 MG TABLET PO SCH (22:00)
[2016-10-12] MEDS: ATORVASTATIN CALCIUM 10 MG TABLET PO SCH (22:12)
[2016-10-12] MEDS: ZOLPIDEM TARTRATE 5 MG TABLET PO SCH (23:36)
[2016-10-13 06:18] LABS: HEMATOCRIT 25.3 % (37.9-51.0); HEMOGLOBIN 8.6 g/dL (13.5-17.0); HGB HCT DIFFERENCE 0.5; MEAN CORPUSCULAR HEMOGLOBIN 29.5 pg (27.0-33.4); MEAN CORPUSCULAR HGB CONC 33.9 g/dL (32.0-36.0); MEAN CORPUSCULAR VOLUME 87 fl (80-97); RED CELL DISTRIBUTION WIDTH 16.6 % (11.5-14.0); WHITE BLOOD COUNT 4.5 10^3/uL (4.0-10.5)
[2016-10-13] MEDS: CLONIDINE HCL 0.1 MG TABLET PO SCH (06:24)
[2016-10-13 06:27] LABS: PROTHROMBIN TIME 16.4 SEC (11.4-15.4)
[2016-10-13] MEDS: HEPARIN SOD (PORCINE) 5,000 UNIT/ML 1 ML SYRINGE SUBCUT SCH ×3 (06:31→22:18)
[2016-10-13] MEDS ORDERED: WARFARIN SODIUM 7.5 MG TABLET PO SCH (08:32)
--- NOTE | 2016-10-13 08:39 | PDOC PROGRESS REPORT ---
Subjective Progress Note for:: 10/13/16 Subjective:: The patient is doing well. No reported temperature spikes or respiratory distress. No nausea or vomiting. Denies chest pain, paroxysmal nocturnal dyspnea. No diarrhea. Tolerating oral intake well according to the family. No reported bleeding. Physical Exam Vital Signs: Temp Pulse Resp BP Pulse Ox 99.0 F 80 17 101/60 97 10/13/16 03:00 10/13/16 07:00 10/13/16 03:00 10/13/16 06:23 10/13/16 03:00 Intake & Output 10/12/16 10/13/16 10/14/16 06:59 06:59 06:59 Intake Total 1438 3010 Output Total 2 146 Balance 1436 2864 Weight 74.9 kg 76.8 kg General appearance: PRESENT: no acute distress, cooperative Head exam: PRESENT: normocephalic Eye exam: PRESENT: conjunctiva pale, EOMI Mouth exam: PRESENT: moist, neck supple Neck exam: ABSENT: JVD Respiratory exam: PRESENT: clear to auscultation main. ABSENT: rhonchi, wheezes Cardiovascular exam: PRESENT: RRR. ABSENT: gallop GI/Abdominal exam: PRESENT: hypoactive bowel sounds, soft. ABSENT: distended, tenderness Extremities exam: ABSENT: pedal edema Neurological exam: PRESENT: alert, awake Skin exam: PRESENT: dry, warm. ABSENT: cyanosis Results Laboratory Results: 10/13/16 05:32 10/12/16 04:57 10/12/16 10/13/16 04:57 05:32 WBC 4.5 RBC 2.90 L Hgb 8.6 L Hct 25.3 L MCV 87 MCH 29.5 MCHC 33.9 RDW 16.6 H Plt Count 138 L Sodium 141.1 Potassium 4.0 Chloride 103 Carbon Dioxide 26 Anion Gap 12 BUN 26 H Creatinine 1.24 Est GFR ( Amer) > 60 Est GFR (Non-Af Amer) 56 L Glucose 106 Calcium 9.3 Impressions: Chest X-Ray 10/09/16 00:00 IMPRESSION: No acute cardiopulmonary disease.Chronic incompletely healed proximal left humeral fracture. Head CT 10/09/16 15:52 IMPRESSION: CHRONIC CHANGES OF ATROPHY AND MICROVASCULAR ISCHEMIA. NO ACUTE PROCESS. Pelvis CT 10/09/16 16:50 IMPRESSION: Nondisplaced comminuted intertrochanteric right proximal femoral fracture. Fluoroscopy 10/12/16 00:00 IMPRESSION: Please see combined report for performance of procedure and radiologic supervision and interpretation. Hip/Pelvis X-Ray 10/13/16 06:00 IMPRESSION: SATISFACTORY POSTOPERATIVE RIGHT HIP. Assessment & Plan - Diagnosis (1) Hip fracture Qualifiers: Encounter type: initial encounter Fracture type: closed Laterality : right Qualified Code(s): S72.001A - Fracture of unspecified part of neck of right femur, initial encounter for closed fracture Is this a current diagnosis for this admission?: Yes (2) Anemia Qualifiers: Anemia type: unspecified type Qualified Code(s): D64.9 - Anemia, unspecified Is this a current diagnosis for this admission?: Yes (3) Anticoagulated Is this a current diagnosis for this admission?: Yes (4) HTN (hypertension), malignant Is this a current diagnosis for this admission?: Yes (5) Diabetes Qualifiers: Diabetes mellitus type: type 2 Diabetes mellitus complication status: with unspecified complications Diabetes mellitus residential insulin use: without residential use Qualified Code(s): E11.8 - Type 2 diabetes mellitus with unspecified complications; Z79.4 - FPC (current) use of insulin Is this a current diagnosis for this admission?: Yes (6) SILVA on CPAP Is this a current diagnosis for this admission?: Yes (7) Atrial fibrillation Qualifiers: Atrial fibrillation type: chronic Qualified Code(s): I48.2 - Chronic atrial fibrillation Is this a current diagnosis for this admission?: Yes (8) Chronic congestive heart failure Qualifiers: Congestive heart failure type: unspecified congestive heart failure type Qualified Code(s): I50.9 - Heart failure, unspecified Is this a current diagnosis for this admission?: Yes - Time Time Spent with patient: 15-24 minutes - Plan Summary Plan Summary: We will decrease the warfarin today. Recheck PT/INR in the morning. Hemoglobin and hematocrit seems to be trending down. We will recheck and transfuse if hemoglobin drops below 8. Continue physical therapy. Awaiting subacute rehabilitation bed. Decrease clonidine dose and altase dose as blood pressure is in the low normal side.
[2016-10-13] MEDS ORDERED: RAMIPRIL 10 MG CAPSULE PO SCH (08:45)
[2016-10-13] MEDS ORDERED: CLONIDINE HCL 0.1 MG TABLET PO SCH (08:45)
--- NOTE | 2016-10-13 09:31 | Operative Report ---
Operative Report DATE OF SURGERY: 10/12/16 PREOPERATIVE DIAGNOSIS: Right nondisplaced intertrochanteric hip fracture POSTOPERATIVE DIAGNOSIS: Same OPERATION: Cephalo-medullary nailing right intertrochanteric hip fracture SURGEON: BETO BANKS ANESTHESIA: GA COMPLICATIONS: None ESTIMATED BLOOD LOSS: 30 mL PROCEDURE: Patient was seen and evaluated in the preoperative holding area. The right lower extremity was initialized and marked. Patient received 2 g Ancef IV for bacterial prophylaxis. Patient was taken back to the operative room where transferred operative table. Patient was placed under spinal anesthesia. Once adequate anesthetized he was carefully placed onto the hip positioner the nonoperative lower extremity and bilateral upper extremities were carefully padded and the peroneal nerve was padded and on the nonoperative extremity. The operative extremity was placed in a traction along with adduction and internal rotation. A surgical team debriefing was performed ensuring all instrumentation was available, the surgical procedure was discussed with possible concerns reviewed. A timeout was done identifying correct patient, procedure and extremity everyone in attendance agree with this and verbalized no concerns. Reduction maneuver with the use of the hip traction table were done and C-arm fluoroscopy was used to confirm optimal reduction of the intertrochanteric fracture. Once this was confirmed the lower extremity was prepped with chlor prep and draped in a sterile fashion. At this point a small skin incision was made proximal to the greater trochanter. The guidewire was placed onto the tip of the trochanter advanced down to the level of the lesser trochanter. AP and lateral fluoroscopy was used to confirm appropriate placement of the guidewire. The skin incision was then extended and the underlying fascia opened up carefully to the tip of the greater trochanter. The entry reamer was then used and advanced to the level of the lesser trochanter. At this point Novelty short gamma nail was opened up and placed onto the aiming arm and advanced down the shaft of the femur. AP and lateral fluoroscopy was then used to confirm appropriate placement of the nail. Then turned my attention to the compression screw fixation in the femoral head. The trochars were advanced to the skin, a skin incision was made, careful dissection down to the fascia to the lateral femoral cortex was then partaken. The guidewire was then used and placed in the center center position with the tip apex distance less than 25 mm. Once this position was obtained the size of the compression screw was measured. AP and lateral fluoroscopy used to confirm appropriate placement of our guide wire. The step reamer was used to drill up through the femoral neck and head. I then carefully advanced the compression screw into position. AP and lateral fluoroscopy was done to confirm appropriate placement of the compression screw this was then locked into position proximally. The compression screw was then disengaged from its mounting device and the guidewire was removed. Lastly proceeded with locking of the nail distally. Using the aiming arm the trochars were advanced to the skin, a skin incision was made. Careful dissection done with a hemostat to the lateral cortex of the femur. I then drilled the near and far cortices. Measured the appropriate sized distal locking screw and secured it into position. At this point AP/lateral and oblique views of the proximal and distal aspect of the nail were taken confirming appropriate placement of the compression screw, distal locking screw and intramedullary nail. Once this was confirmed I proceeded with copious irrigation of the proximal and distal wounds. The deep tissues were closed with 0 Vicryl suture, and 2-0 Vicryl for subcutaneous tissues and dermis closed with 3-0 Monocryl suture. Skin was closed with meena. Xeroform and OpSite dressing was placed. Sponge counts, instrument counts and needle counts were correct. Patient was then transferred from the operating room table to the operating room stretcher. The was no intraoperative complications patient tolerated procedure well was stable to PACU. Implants used: Rajinder 11 x 180 mm 125 Short Gamma Nail with a 105 mm compression screw
--- NOTE | 2016-10-13 09:34 | PDOC PROGRESS REPORT ---
Subjective Progress Note for:: 10/13/16 Subjective:: Patient is being put back in the bed by the therapist after completing therapy and taking a few steps. Pain seems to be controlled adequately with the by mouth medication. Physical Exam Vital Signs: Temp Pulse Resp BP Pulse Ox 37.2 C 80 17 101/60 97 10/13/16 03:00 10/13/16 07:00 10/13/16 03:00 10/13/16 06:23 10/13/16 03:00 Intake & Output 10/12/16 10/13/16 10/14/16 06:59 06:59 06:59 Intake Total 1438 3010 Output Total 2 146 Balance 1436 2864 Weight 74.9 kg 76.8 kg General appearance: PRESENT: no acute distress Adult Front & Back Image: 1 - Right hip exam shows mild to minimal bloody drainage observed in the dressing. The incision is intact Silvia are in place. No erythema noted. Able to flex and extend his toes and ankles without difficulty. He has good sensation to light touch. Good capillary refill distally. Results Laboratory Results: 10/13/16 05:32 10/12/16 04:57 10/12/16 10/13/16 04:57 05:32 WBC 4.5 RBC 2.90 L Hgb 8.6 L Hct 25.3 L MCV 87 MCH 29.5 MCHC 33.9 RDW 16.6 H Plt Count 138 L Sodium 141.1 Potassium 4.0 Chloride 103 Carbon Dioxide 26 Anion Gap 12 BUN 26 H Creatinine 1.24 Est GFR ( Amer) > 60 Est GFR (Non-Af Amer) 56 L Glucose 106 Calcium 9.3 Impressions: Chest X-Ray 10/09/16 00:00 IMPRESSION: No acute cardiopulmonary disease.Chronic incompletely healed proximal left humeral fracture. Head CT 10/09/16 15:52 IMPRESSION: CHRONIC CHANGES OF ATROPHY AND MICROVASCULAR ISCHEMIA. NO ACUTE PROCESS. Pelvis CT 10/09/16 16:50 IMPRESSION: Nondisplaced comminuted intertrochanteric right proximal femoral fracture. Fluoroscopy 10/12/16 00:00 IMPRESSION: Please see combined report for performance of procedure and radiologic supervision and interpretation. Hip/Pelvis X-Ray 10/13/16 06:00 IMPRESSION: SATISFACTORY POSTOPERATIVE RIGHT HIP. Assessment & Plan - Diagnosis (1) Nondisplaced intertrochanteric fracture of right femur Qualifiers: Encounter type: initial encounter Fracture type: closed Qualified Code(s): S72.144A - Nondisplaced intertrochanteric fracture of right femur, initial encounter for closed fracture Is this a current diagnosis for this admission?: YesPlan: Patient is postop day 1 from cephalo-medullary nailing of the right intertrochanteric hip fracture. He is doing well with therapy. Pain is likely control. Unfortunately there will be no rehabilitation beds until the beginning of next week's for the patient will continue to rehabilitation here at the hospital. His platelets are trending down and I agree if primary care would like to stop the heparin and continue the Coumadin.
[2016-10-13] MEDS: DIGOXIN 0.125 MG TABLET PO SCH (09:38)
[2016-10-13] MEDS: LEVOTHYROXINE SODIUM 0.025 MG TABLET PO SCH (09:38)
[2016-10-13] MEDS: CHOLECALCIFEROL (D3) 400 UNIT TABLET PO SCH (09:38)
[2016-10-13] MEDS: IRON POLYSACCHARIDES COMPLEX 150 MG CAPSULE PO SCH (09:38)
[2016-10-13] MEDS: CARVEDILOL 12.5 MG TABLET PO SCH ×3 (09:50→22:19)
[2016-10-13] MEDS ORDERED: RAMIPRIL 10 MG CAPSULE PO ONE (10:30)
[2016-10-13] MEDS ORDERED: NORMAL SALINE 1000 ML 1,000 ML IV ONE (10:45)
[2016-10-13] MEDS ORDERED: RAMIPRIL 5 MG CAPSULE PO ONE (11:00)
[2016-10-13] MEDS ORDERED: WARFARIN SODIUM 5 MG TABLET PO SCH (22:00)
[2016-10-13] MEDS: OXYCODONE HCL IR 5 MG TABLET PO PRN (22:19)
[2016-10-13] MEDS: ATORVASTATIN CALCIUM 10 MG TABLET PO SCH (22:19)
[2016-10-13] MEDS: ZOLPIDEM TARTRATE 5 MG TABLET PO SCH (23:28)
[2016-10-14] MEDS: ACETAMINOPHEN 325 MG TABLET PO PRN (02:15)
[2016-10-14 04:57] LABS: HEMATOCRIT 23.5 % (37.9-51.0); HGB HCT DIFFERENCE 0.5; MEAN CORPUSCULAR HEMOGLOBIN 29.9 pg (27.0-33.4); MEAN CORPUSCULAR HGB CONC 34.1 g/dL (32.0-36.0); MEAN CORPUSCULAR VOLUME 88 fl (80-97); RED BLOOD COUNT 2.68 10^6/uL (4.35-5.55); RED CELL DISTRIBUTION WIDTH 17.3 % (11.5-14.0); WHITE BLOOD COUNT 5.1 10^3/uL (4.0-10.5)
[2016-10-14 05:08] LABS: PROTHROMBIN TIME 15.8 SEC (11.4-15.4)
[2016-10-14] MEDS: HEPARIN SOD (PORCINE) 5,000 UNIT/ML 1 ML SYRINGE SUBCUT SCH (06:44)
[2016-10-14] MEDS ORDERED: RAMIPRIL 5 MG CAPSULE PO SCH (08:00)
[2016-10-14] MEDS: LEVOTHYROXINE SODIUM 0.025 MG TABLET PO SCH (08:28)
[2016-10-14] MEDS: OXYCODONE HCL IR 5 MG TABLET PO PRN (08:28)
--- NOTE | 2016-10-14 09:50 | PDOC PROGRESS REPORT ---
Subjective Progress Note for:: 10/14/16 Subjective:: The patient continues to do well. No reported temperature spikes or respiratory distress. No nausea or vomiting. Denies chest pain, paroxysmal nocturnal dyspnea. No diarrhea. No reported bleeding. INR trended down slightly today. Hemoglobin and hematocrit slightly went down. Also intravenous fluids. Blood pressure seems to stabilize since medications were held. Physical Exam Vital Signs: Temp Pulse Resp BP Pulse Ox 97.5 F 75 18 122/68 98 10/14/16 00:25 10/14/16 07:00 10/14/16 00:25 10/14/16 00:25 10/14/16 00:25 Intake & Output 10/13/16 10/14/16 10/15/16 06:59 06:59 06:59 Intake Total 3010 2009 Output Total 146 150 Balance 2864 1860 Weight 76.8 kg 77.3 kg General appearance: PRESENT: no acute distress, cooperative Head exam: PRESENT: normocephalic Eye exam: PRESENT: EOMI Mouth exam: PRESENT: moist, neck supple Neck exam: ABSENT: JVD Respiratory exam: PRESENT: clear to auscultation main. ABSENT: rhonchi, wheezes Cardiovascular exam: PRESENT: irregular rhythm GI/Abdominal exam: PRESENT: normal bowel sounds, soft. ABSENT: distended, tenderness Extremities exam: ABSENT: pedal edema Neurological exam: PRESENT: alert, awake, oriented to situation Skin exam: PRESENT: dry, warm. ABSENT: cyanosis Results Laboratory Results: 10/14/16 04:21 10/12/16 04:57 10/14/16 04:21 WBC 5.1 RBC 2.68 L Hgb 8.0 L Hct 23.5 L MCV 88 MCH 29.9 MCHC 34.1 RDW 17.3 H Plt Count 137 L Impressions: Chest X-Ray 10/09/16 00:00 IMPRESSION: No acute cardiopulmonary disease.Chronic incompletely healed proximal left humeral fracture. Head CT 10/09/16 15:52 IMPRESSION: CHRONIC CHANGES OF ATROPHY AND MICROVASCULAR ISCHEMIA. NO ACUTE PROCESS. Pelvis CT 10/09/16 16:50 IMPRESSION: Nondisplaced comminuted intertrochanteric right proximal femoral fracture. Fluoroscopy 10/12/16 00:00 IMPRESSION: Please see combined report for performance of procedure and radiologic supervision and interpretation. Hip/Pelvis X-Ray 10/13/16 06:00 IMPRESSION: SATISFACTORY POSTOPERATIVE RIGHT HIP. Assessment & Plan - Diagnosis (1) Hip fracture Qualifiers: Encounter type: initial encounter Fracture type: closed Laterality : right Qualified Code(s): S72.001A - Fracture of unspecified part of neck of right femur, initial encounter for closed fracture Is this a current diagnosis for this admission?: Yes (2) Anemia Qualifiers: Anemia type: unspecified type Qualified Code(s): D64.9 - Anemia, unspecified Is this a current diagnosis for this admission?: Yes (3) Anticoagulated Is this a current diagnosis for this admission?: Yes (4) HTN (hypertension), malignant Is this a current diagnosis for this admission?: Yes (5) Diabetes Qualifiers: Diabetes mellitus type: type 2 Diabetes mellitus complication status: with unspecified complications Diabetes mellitus intermediate card tender insulin use: without intermediate card tender use Qualified Code(s): E11.8 - Type 2 diabetes mellitus with unspecified complications; Z79.4 - detention (current) use of insulin Is this a current diagnosis for this admission?: Yes (6) SILVA on CPAP Is this a current diagnosis for this admission?: Yes (7) Atrial fibrillation Qualifiers: Atrial fibrillation type: chronic Qualified Code(s): I48.2 - Chronic atrial fibrillation Is this a current diagnosis for this admission?: Yes (8) Chronic congestive heart failure Qualifiers: Congestive heart failure type: unspecified congestive heart failure type Qualified Code(s): I50.9 - Heart failure, unspecified Is this a current diagnosis for this admission?: Yes - Time Time Spent with patient: 15-24 minutes - Plan Summary Plan Summary: Discontinue intravenous fluids. Oral intake is fair. Blood pressure is now stable. We will continue monitoring hemoglobin and hematocrit and transfuse if it falls below 8. We will recheck PT/INR in the morning. Increase warfarin. Discontinue heparin.
[2016-10-14] MEDS: DIGOXIN 0.125 MG TABLET PO SCH (09:59)
[2016-10-14] MEDS: CHOLECALCIFEROL (D3) 400 UNIT TABLET PO SCH (09:59)
[2016-10-14] MEDS: IRON POLYSACCHARIDES COMPLEX 150 MG CAPSULE PO SCH (09:59)
[2016-10-14] MEDS: CARVEDILOL 12.5 MG TABLET PO SCH ×2 (09:59→21:51)
[2016-10-14 18:10] LABS: AMORPHOUS SEDIMENT,URINE TRACE /HPF; APPEARANCE,URINE SLIGHTLY-CLOUDY; BILIRUBIN,URINE NEGATIVE (NEGATIVE); GLUCOSE, URINE NEGATIVE (NEGATIVE); KETONES,URINE NEGATIVE (NEGATIVE); LEUKOCYTE ESTERASE,URINE NEGATIVE (NEGATIVE); NITRITE,URINE NEGATIVE (NEGATIVE); PROTEIN,URINE NEGATIVE (NEGATIVE); URINE SPECIFIC GRAVITY 1.012; UROBILINOGEN,URINE NEGATIVE mg/dL (<2.0)
[2016-10-14] MEDS: ATORVASTATIN CALCIUM 10 MG TABLET PO SCH (21:51)
[2016-10-14] MEDS ORDERED: WARFARIN SODIUM 5 MG TABLET PO SCH (22:00)
[2016-10-14] MEDS: ZOLPIDEM TARTRATE 5 MG TABLET PO SCH (22:42)
[2016-10-15 05:40] LABS: HEMATOCRIT 24.2 % (37.9-51.0); HEMOGLOBIN 8.1 g/dL (13.5-17.0); HGB HCT DIFFERENCE 0.1; MEAN CORPUSCULAR HEMOGLOBIN 29.4 pg (27.0-33.4); MEAN CORPUSCULAR HGB CONC 33.5 g/dL (32.0-36.0); MEAN CORPUSCULAR VOLUME 88 fl (80-97); RED BLOOD COUNT 2.76 10^6/uL (4.35-5.55); RED CELL DISTRIBUTION WIDTH 16.9 % (11.5-14.0)
[2016-10-15 06:01] LABS: PROTHROMBIN TIME 14.9 SEC (11.4-15.4)
[2016-10-15] MEDS: OXYCODONE HCL IR 5 MG TABLET PO PRN ×2 (06:32→14:10)
[2016-10-15] MEDS: LEVOTHYROXINE SODIUM 0.025 MG TABLET PO SCH (08:42)
[2016-10-15] MEDS: DIGOXIN 0.125 MG TABLET PO SCH (09:49)
[2016-10-15] MEDS: CARVEDILOL 12.5 MG TABLET PO SCH ×2 (09:49→22:39)
[2016-10-15] MEDS: IRON POLYSACCHARIDES COMPLEX 150 MG CAPSULE PO SCH (09:49)
[2016-10-15] MEDS: CHOLECALCIFEROL (D3) 400 UNIT TABLET PO SCH (09:49)
[2016-10-15] MEDS: DOCUSATE SODIUM 100 MG CAPSULE PO SCH ×2 (09:50→17:32)
--- NOTE | 2016-10-15 10:29 | PDOC PROGRESS REPORT ---
Subjective Progress Note for:: 10/15/16 Subjective:: No melena hematochezia hematemesis reported. No hematuria. No nose bleeding. Denies any shortness of breath or pain. Denies chills or fever. Tolerating oral intake well. No diarrhea. Physical Exam Vital Signs: Temp Pulse Resp BP Pulse Ox 98.6 F 75 20 117/57 L 99 10/15/16 09:11 10/15/16 09:11 10/15/16 09:11 10/15/16 09:11 10/15/16 09:11 Intake & Output 10/14/16 10/15/16 10/16/16 06:59 06:59 06:59 Intake Total 2009 800 Output Total 150 700 Balance 1860 100 Weight 77.3 kg 77.3 kg General appearance: PRESENT: no acute distress, cooperative Head exam: PRESENT: normocephalic Eye exam: PRESENT: EOMI, PERRLA Mouth exam: PRESENT: moist, neck supple Neck exam: ABSENT: JVD Respiratory exam: PRESENT: clear to auscultation main Cardiovascular exam: PRESENT: RRR. ABSENT: gallop GI/Abdominal exam: PRESENT: normal bowel sounds, soft. ABSENT: distended, tenderness Extremities exam: PRESENT: other - Trace lower extremity edema Neurological exam: PRESENT: alert, awake, oriented to situation Skin exam: PRESENT: dry, warm. ABSENT: cyanosis Results Laboratory Results: 10/15/16 05:15 10/12/16 04:57 10/14/16 10/15/16 11:40 05:15 WBC 6.0 RBC 2.76 L Hgb 8.1 L Hct 24.2 L MCV 88 MCH 29.4 MCHC 33.5 RDW 16.9 H Plt Count 151 Urine Color YELLOW Urine Appearance SLIGHTLY-CLOUDY Urine pH 5.0 Ur Specific [place] 1.012 Urine Protein NEGATIVE Urine Glucose (UA) NEGATIVE Urine Ketones NEGATIVE Urine Blood NEGATIVE Urine Nitrite NEGATIVE Ur Leukocyte Esterase NEGATIVE Urine WBC (Auto) 1 Impressions: Chest X-Ray 10/09/16 00:00 IMPRESSION: No acute cardiopulmonary disease.Chronic incompletely healed proximal left humeral fracture. Head CT 10/09/16 15:52 IMPRESSION: CHRONIC CHANGES OF ATROPHY AND MICROVASCULAR ISCHEMIA. NO ACUTE PROCESS. Pelvis CT 10/09/16 16:50 IMPRESSION: Nondisplaced comminuted intertrochanteric right proximal femoral fracture. Fluoroscopy 10/12/16 00:00 IMPRESSION: Please see combined report for performance of procedure and radiologic supervision and interpretation. Hip/Pelvis X-Ray 10/13/16 06:00 IMPRESSION: SATISFACTORY POSTOPERATIVE RIGHT HIP. Assessment & Plan - Diagnosis (1) Hip fracture Qualifiers: Encounter type: initial encounter Fracture type: closed Laterality : right Qualified Code(s): S72.001A - Fracture of unspecified part of neck of right femur, initial encounter for closed fracture Is this a current diagnosis for this admission?: Yes (2) Anemia Qualifiers: Anemia type: unspecified type Qualified Code(s): D64.9 - Anemia, unspecified Is this a current diagnosis for this admission?: Yes (3) Anticoagulated Is this a current diagnosis for this admission?: Yes (4) HTN (hypertension), malignant Is this a current diagnosis for this admission?: Yes (5) Diabetes Qualifiers: Diabetes mellitus type: type 2 Diabetes mellitus complication status: with unspecified complications Diabetes mellitus intermediate manager insulin use: without intermediate manager use Qualified Code(s): E11.8 - Type 2 diabetes mellitus with unspecified complications; Z79.4 - termite control representative (current) use of insulin Is this a current diagnosis for this admission?: Yes (6) SILVA on CPAP Is this a current diagnosis for this admission?: Yes (7) Atrial fibrillation Qualifiers: Atrial fibrillation type: chronic Qualified Code(s): I48.2 - Chronic atrial fibrillation Is this a current diagnosis for this admission?: Yes (8) Chronic congestive heart failure Qualifiers: Congestive heart failure type: unspecified congestive heart failure type Qualified Code(s): I50.9 - Heart failure, unspecified Is this a current diagnosis for this admission?: Yes - Time Time Spent with patient: 15-24 minutes - Plan Summary Plan Summary: Family would want the patient to be brought to rehabilitation. However if it will not be available within the next 5 days would likely bring home with home health. Has close family member who is a therapist as offered help for them in case rehabilitation does not materialize. We are going to increase the warfarin and check PT/INR in the morning. Monitor electrolytes. Continue supportive care. Hemoglobin and hematocrit seems to be stable.
[2016-10-15] MEDS: ATORVASTATIN CALCIUM 10 MG TABLET PO SCH (22:40)
[2016-10-15] MEDS: WARFARIN SODIUM 5 MG TABLET PO SCH (22:40)
[2016-10-15] MEDS: INSULIN LISPRO 100 UNIT/ML 3 ML VIAL SUBCUT PRN (22:40)
[2016-10-15] MEDS: ZOLPIDEM TARTRATE 5 MG TABLET PO SCH (22:41)
[2016-10-16 07:19] LABS: PROTHROMBIN TIME 16.5 SEC (11.4-15.4)
[2016-10-16 07:21] LABS: ANION GAP 11 (5-19); BLOOD UREA NITROGEN 27 mg/dL (7-20); CARBON DIOXIDE 22 mmol/L (22-30); CHLORIDE 108 mmol/L (98-107); CREATININE RESULT 1.09 mg/dL (0.52-1.25); GLUCOSE 110 mg/dL (75-110); SODIUM 141.3 mmol/L (137-145)
[2016-10-16] MEDS: CHOLECALCIFEROL (D3) 400 UNIT TABLET PO SCH (10:08)
[2016-10-16] MEDS: IRON POLYSACCHARIDES COMPLEX 150 MG CAPSULE PO SCH (10:08)
[2016-10-16] MEDS: LEVOTHYROXINE SODIUM 0.025 MG TABLET PO SCH (10:08)
[2016-10-16] MEDS: CARVEDILOL 12.5 MG TABLET PO SCH ×2 (10:09→21:13)
[2016-10-16] MEDS: DIGOXIN 0.125 MG TABLET PO SCH (10:09)
--- NOTE | 2016-10-16 11:18 | PDOC PROGRESS REPORT ---
Subjective Progress Note for:: 10/16/16 Subjective:: Patient voiced no complaints. No chills or fever. No chest pain or shortness of breath. No diarrhea and nausea vomiting or abdominal pain. Physical Exam Vital Signs: Temp Pulse Resp BP Pulse Ox 99 F 75 16 133/71 H 100 10/16/16 04:00 10/16/16 07:00 10/16/16 04:00 10/16/16 04:00 10/16/16 04:00 Intake & Output 10/15/16 10/16/16 10/17/16 06:59 06:59 06:59 Intake Total 800 729 Output Total 700 500 Balance 100 229 Weight 77.3 kg 82.2 kg General appearance: PRESENT: no acute distress, cooperative Head exam: PRESENT: normocephalic Eye exam: PRESENT: EOMI, PERRLA Mouth exam: PRESENT: moist, neck supple Neck exam: ABSENT: JVD Respiratory exam: PRESENT: clear to auscultation main Cardiovascular exam: PRESENT: irregular rhythm GI/Abdominal exam: PRESENT: normal bowel sounds, soft. ABSENT: distended, tenderness Extremities exam: ABSENT: pedal edema Neurological exam: PRESENT: alert, awake Skin exam: PRESENT: dry, warm. ABSENT: cyanosis Results Laboratory Results: 10/15/16 05:15 10/16/16 05:20 10/16/16 05:20 Sodium 141.3 Potassium 4.0 Chloride 108 H Carbon Dioxide 22 Anion Gap 11 BUN 27 H Creatinine 1.09 Est GFR ( Amer) > 60 Est GFR (Non-Af Amer) > 60 Glucose 110 Calcium 9.0 Impressions: Chest X-Ray 10/09/16 00:00 IMPRESSION: No acute cardiopulmonary disease.Chronic incompletely healed proximal left humeral fracture. Head CT 10/09/16 15:52 IMPRESSION: CHRONIC CHANGES OF ATROPHY AND MICROVASCULAR ISCHEMIA. NO ACUTE PROCESS. Pelvis CT 10/09/16 16:50 IMPRESSION: Nondisplaced comminuted intertrochanteric right proximal femoral fracture. Fluoroscopy 10/12/16 00:00 IMPRESSION: Please see combined report for performance of procedure and radiologic supervision and interpretation. Hip/Pelvis X-Ray 10/13/16 06:00 IMPRESSION: SATISFACTORY POSTOPERATIVE RIGHT HIP. Assessment & Plan - Diagnosis (1) Hip fracture Qualifiers: Encounter type: initial encounter Fracture type: closed Laterality : right Qualified Code(s): S72.001A - Fracture of unspecified part of neck of right femur, initial encounter for closed fracture Is this a current diagnosis for this admission?: Yes (2) Anemia Qualifiers: Anemia type: unspecified type Qualified Code(s): D64.9 - Anemia, unspecified Is this a current diagnosis for this admission?: Yes (3) Anticoagulated Is this a current diagnosis for this admission?: Yes (4) HTN (hypertension), malignant Is this a current diagnosis for this admission?: Yes (5) Diabetes Qualifiers: Diabetes mellitus type: type 2 Diabetes mellitus complication status: with unspecified complications Diabetes mellitus senior living insulin use: without senior living use Qualified Code(s): E11.8 - Type 2 diabetes mellitus with unspecified complications; Z79.4 - intermediate school teacher (current) use of insulin Is this a current diagnosis for this admission?: Yes (6) SILVA on CPAP Is this a current diagnosis for this admission?: Yes (7) Atrial fibrillation Qualifiers: Atrial fibrillation type: chronic Qualified Code(s): I48.2 - Chronic atrial fibrillation Is this a current diagnosis for this admission?: Yes (8) Chronic congestive heart failure Qualifiers: Congestive heart failure type: unspecified congestive heart failure type Qualified Code(s): I50.9 - Heart failure, unspecified Is this a current diagnosis for this admission?: Yes - Time Time Spent with patient: Less than 15 minutes - Plan Summary Plan Summary: Continue physical therapy. Continue warfarin and recheck PT/INR in the morning. Goal is between 2 and 3. Awaiting subacute rehabilitation bed.
[2016-10-16] MEDS: INSULIN LISPRO 100 UNIT/ML 3 ML VIAL SUBCUT PRN (17:07)
[2016-10-16] MEDS: ACETAMINOPHEN 325 MG TABLET PO PRN (21:13)
[2016-10-16] MEDS: ATORVASTATIN CALCIUM 10 MG TABLET PO SCH (21:13)
[2016-10-16] MEDS: WARFARIN SODIUM 5 MG TABLET PO SCH (21:13)
[2016-10-16] MEDS: ZOLPIDEM TARTRATE 5 MG TABLET PO SCH (21:14)
[2016-10-17 06:38] LABS: PROTHROMBIN TIME 19.3 SEC (11.4-15.4)
[2016-10-17] MEDS: OXYCODONE HCL IR 5 MG TABLET PO PRN (07:56)
[2016-10-17] MEDS: LEVOTHYROXINE SODIUM 0.025 MG TABLET PO SCH (07:57)
[2016-10-17] MEDS: CARVEDILOL 12.5 MG TABLET PO SCH ×2 (09:18→21:50)
[2016-10-17] MEDS: IRON POLYSACCHARIDES COMPLEX 150 MG CAPSULE PO SCH (09:18)
[2016-10-17] MEDS: DIGOXIN 0.125 MG TABLET PO SCH (09:19)
[2016-10-17] MEDS: CHOLECALCIFEROL (D3) 400 UNIT TABLET PO SCH (09:19)
--- NOTE | 2016-10-17 12:56 | PDOC PROGRESS REPORT ---
Subjective Progress Note for:: 10/17/16 Subjective:: Reports his pain in his hip is tolerable. Physical Exam Vital Signs: Temp Pulse Resp BP Pulse Ox 97.9 F 74 20 146/84 H 100 10/17/16 07:51 10/17/16 07:51 10/17/16 07:51 10/17/16 07:51 10/17/16 07:51 Intake & Output 10/16/16 10/17/16 10/18/16 06:59 06:59 06:59 Intake Total 729 1095 Output Total 500 Balance 229 1095 Weight 82.2 kg 83.5 kg General appearance: PRESENT: no acute distress Eye exam: PRESENT: conjunctiva pink Mouth exam: PRESENT: moist, tongue midline Neck exam: ABSENT: JVD Respiratory exam: PRESENT: clear to auscultation main. ABSENT: rales, rhonchi, wheezes Cardiovascular exam: PRESENT: RRR. ABSENT: diastolic murmur, rubs, systolic murmur GI/Abdominal exam: PRESENT: normal bowel sounds, soft. ABSENT: distended, guarding, mass, organolmegaly, rebound, tenderness Extremities exam: ABSENT: calf tenderness, clubbing, pedal edema Neurological exam: PRESENT: alert, awake, oriented to person, oriented to place , oriented to time, oriented to situation Psychiatric exam: PRESENT: appropriate affect Skin exam: PRESENT: dry, intact, warm. ABSENT: cyanosis, rash Results Laboratory Results: 10/15/16 05:15 10/16/16 05:20 10/16/16 20:45 Stool Occult Blood NEGATIVE Impressions: Chest X-Ray 10/09/16 00:00 IMPRESSION: No acute cardiopulmonary disease.Chronic incompletely healed proximal left humeral fracture. Head CT 10/09/16 15:52 IMPRESSION: CHRONIC CHANGES OF ATROPHY AND MICROVASCULAR ISCHEMIA. NO ACUTE PROCESS. Pelvis CT 10/09/16 16:50 IMPRESSION: Nondisplaced comminuted intertrochanteric right proximal femoral fracture. Fluoroscopy 10/12/16 00:00 IMPRESSION: Please see combined report for performance of procedure and radiologic supervision and interpretation. Hip/Pelvis X-Ray 10/13/16 06:00 IMPRESSION: SATISFACTORY POSTOPERATIVE RIGHT HIP. Assessment & Plan - Diagnosis (1) Hip fracture Qualifiers: Encounter type: initial encounter Fracture type: closed Laterality : right Qualified Code(s): S72.001A - Fracture of unspecified part of neck of right femur, initial encounter for closed fracture Is this a current diagnosis for this admission?: YesPlan: Patient getting up with physical therapy. He reports he was only able to take 7 steps yesterday. Patient is to go to rehabilitation when a bed becomes available. (2) Anemia Qualifiers: Anemia type: unspecified type Qualified Code(s): D64.9 - Anemia, unspecified Is this a current diagnosis for this admission?: YesPlan: Hemoglobin has remained stable. (3) Atrial fibrillation Qualifiers: Atrial fibrillation type: chronic Qualified Code(s): I48.2 - Chronic atrial fibrillation Is this a current diagnosis for this admission?: YesPlan: Patient is rate control. He is still subtherapeutic on Coumadin. (4) Chronic congestive heart failure Qualifiers: Congestive heart failure type: unspecified congestive heart failure type Qualified Code(s): I50.9 - Heart failure, unspecified Is this a current diagnosis for this admission?: YesPlan: Patient is currently euvolemic. (5) HTN (hypertension), malignant Is this a current diagnosis for this admission?: YesPlan: Blood pressure stable at this time. (6) CAD (coronary artery disease) Is this a current diagnosis for this admission?: YesPlan: Denies any chest pain. (7) Diabetes Qualifiers: Diabetes mellitus type: type 2 Diabetes mellitus complication status: with unspecified complications Diabetes mellitus retirement insulin use: without intermodal owner operator truck driver use Qualified Code(s): E11.8 - Type 2 diabetes mellitus with unspecified complications; Z79.4 - intermodal owner operator truck driver (current) use of insulin Is this a current diagnosis for this admission?: YesPlan: Continue with sliding scale insulin. (8) SILVA on CPAP Is this a current diagnosis for this admission?: Yes - Time Time Spent with patient: 25-34 minutes - Inpatient Certification Medical Necessity: Need Close Monitoring Due to Risk of Patient Decompensation - Plan Summary Plan Summary: We'll go to rehabilitation when a bed becomes available.
[2016-10-17] MEDS: WARFARIN SODIUM 5 MG TABLET PO SCH (21:50)
[2016-10-17] MEDS: ZOLPIDEM TARTRATE 5 MG TABLET PO SCH (21:50)
[2016-10-17] MEDS: ATORVASTATIN CALCIUM 10 MG TABLET PO SCH (21:50)
[2016-10-17] MEDS: ACETAMINOPHEN 325 MG TABLET PO PRN (21:50)
[2016-10-18 06:05] LABS: ABSOLUTE EOSINOPHILS # (AUTO) 0.2 10^3/uL (0.0-0.6); ABSOLUTE LYMPHOCYTES (AUTO) 0.7 10^3/uL (0.5-4.7); ABSOLUTE MONOCYTES (AUTO) 0.6 10^3/uL (0.1-1.4); ABSOLUTE NEUT (AUTO) 3.6 10^3/uL (1.7-8.2); BASOPHILS % (AUTO) 0.9 % (0-2); EOSINOPHILS % (AUTO) 3.3 % (0-6); HEMATOCRIT 24.9 % (37.9-51.0); HEMOGLOBIN 8.3 g/dL (13.5-17.0); LYMPHOCYTES % (AUTO) 13.2 % (13-45); MEAN CORPUSCULAR HEMOGLOBIN 29.5 pg (27.0-33.4); MEAN CORPUSCULAR HGB CONC 33.2 g/dL (32.0-36.0); MEAN CORPUSCULAR VOLUME 89 fl (80-97); MONOCYTES % (AUTO) 11.3 % (3-13); RED BLOOD COUNT 2.81 10^6/uL (4.35-5.55); RED CELL DISTRIBUTION WIDTH 17.2 % (11.5-14.0); SEGMENTED NEUTROPHILS % (AUTO) 71.3 % (42-78); WHITE BLOOD COUNT 5.1 10^3/uL (4.0-10.5)
[2016-10-18 06:13] LABS: ANION GAP 11 (5-19); BLOOD UREA NITROGEN 24 mg/dL (7-20); CALCIUM 8.8 mg/dL (8.4-10.2); CARBON DIOXIDE 24 mmol/L (22-30); CHLORIDE 108 mmol/L (98-107); GLUCOSE 103 mg/dL (75-110); POTASSIUM 4.3 mmol/L (3.6-5.0); SODIUM 142.9 mmol/L (137-145)
[2016-10-18] MEDS: LEVOTHYROXINE SODIUM 0.025 MG TABLET PO SCH (08:14)
[2016-10-18] MEDS: CARVEDILOL 12.5 MG TABLET PO SCH (09:58)
[2016-10-18] MEDS: CHOLECALCIFEROL (D3) 400 UNIT TABLET PO SCH (09:59)
[2016-10-18] MEDS: DIGOXIN 0.125 MG TABLET PO SCH (10:00)
[2016-10-18] MEDS: IRON POLYSACCHARIDES COMPLEX 150 MG CAPSULE PO SCH (10:00)
--- NOTE | 2016-10-18 11:11 | PDOC PROGRESS REPORT ---
Subjective Progress Note for:: 10/18/16 Subjective:: Patient is 76-year-old gentleman status post intramedullary nailing of the right hip fracture. He's been working with physical therapy daily. He states that he is going to be discharged home today. States that the daughter will assume his care and does not want to go to rehabilitation. Over the weekend patient states he had no acute issues. States that he worked with therapy today and ambulated several steps with a walker. Pain adequately controlled. Physical Exam Vital Signs: Temp Pulse Resp BP Pulse Ox 36.7 C 76 14 131/77 H 99 10/18/16 07:57 10/18/16 07:57 10/18/16 07:57 10/18/16 07:57 10/18/16 07:57 Intake & Output 10/17/16 10/18/16 10/19/16 06:59 06:59 06:59 Intake Total 1095 436 Balance 1095 436 Weight 83.5 kg 84.2 kg General appearance: PRESENT: no acute distress Adult Front & Back Image: 1 - Dressing and incision are dry clean and intact. Mild swelling postop but adequate and expected. Calves and able to flex and extend the ankle and toes without difficulty. Good sensation to light touch. Good capillary refill Results Laboratory Results: 10/18/16 05:28 10/18/16 05:28 10/18/16 10/18/16 05:28 05:28 WBC 5.1 RBC 2.81 L Hgb 8.3 L Hct 24.9 L MCV 89 MCH 29.5 MCHC 33.2 RDW 17.2 H Plt Count 219 Seg Neutrophils % 71.3 Lymphocytes % 13.2 Monocytes % 11.3 Eosinophils % 3.3 Basophils % 0.9 Absolute Neutrophils 3.6 Absolute Lymphocytes 0.7 Absolute Monocytes 0.6 Absolute Eosinophils 0.2 Absolute Basophils 0.0 Sodium 142.9 Potassium 4.3 Chloride 108 H Carbon Dioxide 24 Anion Gap 11 BUN 24 H Creatinine 1.10 Est GFR ( Amer) > 60 Est GFR (Non-Af Amer) > 60 Glucose 103 Calcium 8.8 Impressions: Chest X-Ray 12/26/16 00:00 IMPRESSION: No acute cardiopulmonary disease.Chronic incompletely healed proximal left humeral fracture. Head CT 10/09/16 15:52 IMPRESSION: CHRONIC CHANGES OF ATROPHY AND MICROVASCULAR ISCHEMIA. NO ACUTE PROCESS. Pelvis CT 10/09/16 16:50 IMPRESSION: Nondisplaced comminuted intertrochanteric right proximal femoral fracture. Fluoroscopy 10/12/16 00:00 IMPRESSION: Please see combined report for performance of procedure and radiologic supervision and interpretation. Hip/Pelvis X-Ray 10/13/16 06:00 IMPRESSION: SATISFACTORY POSTOPERATIVE RIGHT HIP. Assessment & Plan - Diagnosis (1) Nondisplaced intertrochanteric fracture of right femur Qualifiers: Encounter type: initial encounter Fracture type: closed Qualified Code(s): S72.144A - Nondisplaced intertrochanteric fracture of right femur, initial encounter for closed fracture Is this a current diagnosis for this admission?: YesPlan: M.D.-year-old gentleman who is 6 days status post nailing of the right intertrochanteric hip fracture. He is being discharged this afternoon. He is instructed follow up with me 1 week (Sunday) in the [place] office. Continue Coumadin Continue pain meds. Continue weightbearing as tolerated and physical therapy. Okay to remove the dressing this weekend and start showering without soaking or tub bath.
--- NOTE | 2016-10-18 14:36 | PDOC DISCHARGE SUMMARY ---
General - Admit/Disc Date/PCP Admission Date/Primary Care Provider: 10/09/16 20:03 Discharge Date: 10/18/16 - Discharge Diagnosis (1) Hip fracture Is this a current diagnosis for this admission?: YesSummary: Status post IM nailing (2) Anemia Is this a current diagnosis for this admission?: Yes (3) Atrial fibrillation Is this a current diagnosis for this admission?: Yes (4) Chronic congestive heart failure Is this a current diagnosis for this admission?: Yes (5) HTN (hypertension), malignant Is this a current diagnosis for this admission?: Yes (6) CAD (coronary artery disease) Is this a current diagnosis for this admission?: Yes (7) Diabetes Is this a current diagnosis for this admission?: Yes (8) SILVA on CPAP Is this a current diagnosis for this admission?: Yes - Additional Information Resuscitation Status: Full Code Discharge Diet: Diabetic Discharge Activity: Activity As Tolerated Home Medications: Carvedilol 25 mg PO BID 10/09/16 Clonidine HCl 0.1 mg PO TID 10/09/16 Digoxin [Digox] 125 mcg PO DAILY 10/09/16 Ergocalciferol (Vitamin D2) [Vitamin D2] 400 unit PO DAILY 10/09/16 Exenatide Microspheres [Bydureon Pen] 2 mg SQ ASDIR PRN 10/09/16 Furosemide [Lasix 40 mg Tablet] 40 mg PO DAILY 10/09/16 Krill Oil 500 mg PO BID 10/09/16 Levothyroxine Sodium [Synthroid] 25 mcg PO DAILY 10/09/16 Lovastatin [Altoprev] 20 mg PO QHS 10/09/16 Metformin HCl [Glucophage] 1,000 mg PO Q12 10/09/16 Omeprazole 20 mg PO DAILY 10/09/16 Potassium Chloride 20 meq PO Q12 10/09/16 Sacubitril/Valsartan [Entresto 49 mg/51 mg Tablet] 1 tab PO BID 10/09/16 Sitagliptin Phosphate [Januvia 50 mg Tablet] 50 mg PO DAILY 10/09/16 Tramadol HCl 50 mg PO TID 10/09/16 Warfarin Sodium 5 mg PO QHS 10/09/16 Cholecalciferol (Vitamin D3) [Vitamin D3 400 Unit Tablet] 400 unit PO DAILY tablet 10/18/16 Iron Polysaccharides Complex [Nu-Iron 150 Capsule] 150 mg PO DAILY #30 capsule 10/18/16 Oxycodone HCl [Oxy-Ir 5 mg Tablet] 5 mg PO Q6HP PRN #30 tablet 10/18/16 History of Present Illness History of Present Illness: KEVAN GOMES SR is a 76 year old male with a history of coronary artery disease and history of pulmonary embolism on Coumadin who presented after having a fall with right hip pain. Patient was found to have a intertrochanteric fracture. Hospital Course Hospital Course: 76-year-old gentleman with history of coronary disease on anticoagulation because of history of pulmonary embolism who presented after a fall with a right intertrochanteric hip fracture. The patient's Coumadin was reversed and the patient was evaluated by orthopedic surgery who did an IM nailing. The patient did well postoperatively and was going to go to rehabilitation however his [id number] is a retired physical therapist and agreed to come live with him for the next 2 weeks and the decision was made to discharge him to home. The patient will have home health with physical therapy with them as well as with his [id number]. She had been restarted on his Coumadin which she was been on as an outpatient. On the day of discharge his INR was 1.8 and he is to resume his usual outpatient dose and follow up in 1 week with his primary care doctor for a PT and INR. Patient will follow up with orthopedic surgery in 7-10 days. Physical Exam Vital Signs: Temp Pulse Resp BP Pulse Ox 98.0 F 76 14 131/77 H 99 10/18/16 07:57 10/18/16 07:57 10/18/16 07:57 10/18/16 07:57 10/18/16 07:57 Intake & Output 10/17/16 10/18/16 10/19/16 06:59 06:59 06:59 Intake Total 1095 436 Balance 1095 436 Weight 83.5 kg 84.2 kg General appearance: PRESENT: no acute distress Eye exam: PRESENT: conjunctiva pink Mouth exam: PRESENT: moist, tongue midline Neck exam: ABSENT: JVD Respiratory exam: PRESENT: clear to auscultation main. ABSENT: rales, rhonchi, wheezes Cardiovascular exam: PRESENT: irregular rhythm GI/Abdominal exam: PRESENT: normal bowel sounds, soft. ABSENT: distended, guarding, mass, organolmegaly, rebound, tenderness Extremities exam: ABSENT: calf tenderness, clubbing, pedal edema Neurological exam: PRESENT: alert, awake, oriented to person, oriented to place , oriented to time, oriented to situation Psychiatric exam: PRESENT: appropriate affect Results Laboratory Results: 10/18/16 05:28 10/18/16 05:28 10/18/16 10/18/16 05:28 05:28 WBC 5.1 RBC 2.81 L Hgb 8.3 L Hct 24.9 L MCV 89 MCH 29.5 MCHC 33.2 RDW 17.2 H Plt Count 219 Seg Neutrophils % 71.3 Lymphocytes % 13.2 Monocytes % 11.3 Eosinophils % 3.3 Basophils % 0.9 Absolute Neutrophils 3.6 Absolute Lymphocytes 0.7 Absolute Monocytes 0.6 Absolute Eosinophils 0.2 Absolute Basophils 0.0 Sodium 142.9 Potassium 4.3 Chloride 108 H Carbon Dioxide 24 Anion Gap 11 BUN 24 H Creatinine 1.10 Est GFR ( Amer) > 60 Est GFR (Non-Af Amer) > 60 Glucose 103 Calcium 8.8 Impressions: Chest X-Ray 10/09/16 00:00 IMPRESSION: No acute cardiopulmonary disease.Chronic incompletely healed proximal left humeral fracture. Head CT 10/09/16 15:52 IMPRESSION: CHRONIC CHANGES OF ATROPHY AND MICROVASCULAR ISCHEMIA. NO ACUTE PROCESS. Pelvis CT 10/09/16 16:50 IMPRESSION: Nondisplaced comminuted intertrochanteric right proximal femoral fracture. Fluoroscopy 10/12/16 00:00 IMPRESSION: Please see combined report for performance of procedure and radiologic supervision and interpretation. Hip/Pelvis X-Ray 10/13/16 06:00 IMPRESSION: SATISFACTORY POSTOPERATIVE RIGHT HIP. Qualifiers PATEINT BEING DISCHARGED WITH ANY OF THE FOLLOWING DIAGNOSIS?: No Plan Discharge Plan: Discharged to home with home health for physical therapy. Time Spent: Greater than 30 Minutes
[2016-10-18 15:01] VITALS: BP 122/61
[2016-10-18] MEDS: OXYCODONE HCL IR 5 MG TABLET PO PRN (16:21)
--- NOTE | 2016-12-05 06:41 | Progress Note ---
Provider Note Provider Note: So follow-up to query clarification of heart failure admission 10/10/2016 patient presented with shortness of breath from an exacerbation of systolic heart failure.
== END 2016-10-18 18:55 | disposition home health service (06) | DRG 481 ==
LOC: ER 15:15 → EH 20:03 → UNDOADMIN 20:20 → EH 20:20 → 4S 21:59
PROVIDERS: ADMIT Internal Medicine; ATTEND Internal Medicine
PROC: 0QH604Z Insertion of Internal Fixation Device into Right Upper Femur, Open Approach (ICD-10-PCS; principal; 2016-10-12 07:30)
DX: S72.144A Nondisplaced intertrochanteric fracture of right femur, initial encounter for closed fracture (principal); I50.22 Chronic systolic (congestive) heart failure; W19.XXXA Unspecified fall, initial encounter; Y93.9 Activity, unspecified; Y92.9 Unspecified place or not applicable; Y99.9 Unspecified external cause status; I48.2 Chronic atrial fibrillation; I10 Essential (primary) hypertension; D64.9 Anemia, unspecified; G47.33 Obstructive sleep apnea (adult) (pediatric); E11.9 Type 2 diabetes mellitus without complications; I25.10 Atherosclerotic heart disease of native coronary artery without angina pectoris; Z86.711 Personal history of pulmonary embolism; Z79.01 Long term (current) use of anticoagulants; Z79.899 Other long term (current) drug therapy; Z79.84 Long term (current) use of oral hypoglycemic drugs; Z95.810 Presence of automatic (implantable) cardiac defibrillator; Z87.891 Personal history of nicotine dependence; Z96.651 Presence of right artificial knee joint
CPT/HCPCS: 01230; 36415; 70450; 71010; 72192; 80048; 80053; 80162; 81001; 82272; 82607; 82728; 82746; 82962; 83540; 83550; 85025; 85027; 85045; 85610; 86850; 86900; 86901; 93005; 93010; 99285; C1713; G8978-GP; G8979-GP; J0131; J0690; J1644; J1815; J2370; J2405; J2704; J3010; J3490; J7030; J7120